=== PATIENT | female | born 1955 | race Caucasian/White ===

== ENCOUNTER → 2023-11-21 15:00 | Outpatient (REF) | payer MEDICARE, SELFPAY | LOC: RAD 15:00 | PROVIDERS: ATTENDING PHYSICIAN Internal Medicine Cardiovascular Disease; FAMILY PHYSICIAN Family Medicine | DX: I71.43 Infrarenal abdominal aortic aneurysm, without rupture (principal) | CPT/HCPCS: 76770 ==

== ENCOUNTER → 2023-12-26 07:17 | Outpatient (REF) | payer MEDICARE, SELFPAY ==
[2023-12-26 08:41] LABS: ALT (SGPT) 24 U/L (0-35); AST (SGOT) 31 U/L (14-36); Albumin 4.2 g/dl (3.5-5.0); Alkaline Phosphatase 87 U/L (38-126); Blood Urea Nitrogen 15 mg/dl (7-17); Carbon Dioxide 29 mmol/L (22-30); Chloride 104 mmol/L (98-107); Direct Bilirubin 0.2 mg/dl (0.0-0.4); Glucose 94 mg/dl (70-99); HDL Cholesterol 59 mg/dl; LDL Cholesterol, Calculated 46 mg/dl; Potassium 4.7 mmol/L (3.5-5.1); Sodium 142 mmol/L (135-145); Total Bilirubin 0.9 mg/dl (0.2-1.3); Total Cholesterol 119 mg/dl (50-199); Total Protein 6.5 g/dl (6.3-8.2); Triglyceride 70 mg/dl (10-149); Very Low Density Lipoprotein 14 mg/dl (0-30); eGFR > 60.00
== END ==
LOC: REG 07:17
PROVIDERS: ATTENDING PHYSICIAN Internal Medicine Cardiovascular Disease; FAMILY PHYSICIAN Family Medicine
DX: E78.00 Pure hypercholesterolemia, unspecified (principal); I10 Essential (primary) hypertension; E78.5 Hyperlipidemia, unspecified
CPT/HCPCS: 36415; 80053; 80061; 82248

== ENCOUNTER → 2024-02-04 14:03 | Outpatient (REF) | payer MEDICARE, SELFPAY | LOC: WDC 14:03 | PROVIDERS: ATTENDING PHYSICIAN Family Medicine | DX: Z12.31 Encounter for screening mammogram for malignant neoplasm of breast (principal) | CPT/HCPCS: 77063; 77067 ==

== ENCOUNTER → 2024-08-07 08:01 | Outpatient (REF) | payer MEDICARE, SELFPAY | LOC: RAD 08:01 | PROVIDERS: ATTENDING PHYSICIAN Surgery Vascular Surgery; FAMILY PHYSICIAN Family Medicine | DX: I73.9 Peripheral vascular disease, unspecified (principal) | CPT/HCPCS: 76770; 93922 ==

== ENCOUNTER → 2024-10-02 13:13 | Outpatient (REF) | payer MEDICARE, SELFPAY | LOC: HWRAD 13:13 | PROVIDERS: ATTENDING PHYSICIAN Family Medicine; FAMILY PHYSICIAN Family Medicine | DX: F17.210 Nicotine dependence, cigarettes, uncomplicated (principal) | CPT/HCPCS: 71271 ==

== ENCOUNTER → 2024-10-12 10:08 | Outpatient (REF) | payer MEDICARE, SELFPAY | LOC: RAD 10:08 | PROVIDERS: ATTENDING PHYSICIAN Family Medicine; FAMILY PHYSICIAN Family Medicine | DX: R30.0 Dysuria (principal); N39.0 Urinary tract infection, site not specified | CPT/HCPCS: 76770; 76830; 76856 ==

== ENCOUNTER → 2024-10-15 14:15 | Outpatient (REF) | payer MEDICARE, SELFPAY | LOC: HWRAD 14:15 | PROVIDERS: ATTENDING PHYSICIAN Internal Medicine; FAMILY PHYSICIAN Family Medicine | DX: R91.1 Solitary pulmonary nodule (principal) | CPT/HCPCS: 71250 ==

== ENCOUNTER → 2024-10-30 11:26 | Outpatient (REF) | payer MEDICARE, SELFPAY ==
[2024-10-30 12:15] LABS: INR 0.98; PT 13.3 Sec (11.4-14.6)
[2024-10-30 12:33] LABS: ALT (SGPT) 22 U/L (0-35); AST (SGOT) 26 U/L (14-36); Albumin 4.6 g/dl (3.5-5.0); Alkaline Phosphatase 91 U/L (38-126); Direct Bilirubin 0.3 mg/dl (0.0-0.4); Total Bilirubin 0.9 mg/dl (0.2-1.3)
== END ==
LOC: REG 11:26
PROVIDERS: ATTENDING PHYSICIAN Internal Medicine; FAMILY PHYSICIAN Family Medicine
DX: R79.1 Abnormal coagulation profile (principal); R94.5 Abnormal results of liver function studies
CPT/HCPCS: 36415; 80076; 85610

== ENCOUNTER 2024-11-02 06:38 | Day surgery (SDC) | payer MEDICARE, SELFPAY ==
[2024-10-27 11:24] LABS: Hematocrit 42.5 % (37.0-47.0); Hemoglobin 14.3 g/dL (12.0-16.0); Mean Corp Hgb Conc. 33.6 g/dL (33.0-37.0); Mean Corpuscular Hgb 32.9 pg (27.0-31.0); Mean Corpuscular Volume 97.9 fL (81.0-99.0); Mean Platelet Volume 11.1 fL (7.4-10.4); Platelet Count 287 10^3/uL (130-400); Red Blood Cell Count 4.34 10^6/uL (4.20-5.40); Red Cell Dist. Width 13.3 % (11.5-14.5); White Blood Cell Count 7.7 10^3/uL (4.8-10.8)
[2024-10-27 11:36] LABS: INR 3.31; PT 33.4 Sec (11.4-14.6)
[2024-10-27 12:06] LABS: Blood Urea Nitrogen 14 mg/dl (7-17); Calcium 9.9 mg/dl (8.4-10.2); Carbon Dioxide 29 mmol/L (22-30); Chloride 108 mmol/L (98-107); Glucose 72 mg/dl (70-99); Potassium 4.8 mmol/L (3.5-5.1); Sodium 144 mmol/L (135-145); eGFR > 60.00
[2024-10-27 13:40] VITALS: BMI 22.1
--- NOTE | 2024-10-27 16:02 | PTCARENOTE ---
Patients 10/27 INR- 3.31- Dinora @ Dr. Biswas office notified
[2024-11-02] VITALS (9 sets, daily range): BP systolic 107–135; BP diastolic 6–68; BMI 22.9
[2024-11-02] MEDS: NSS 500 IV (11:10)
[2024-11-02] MEDS: VENTOLIN NEBULES 2.5 MG INH (11:14)
== END 2024-11-02 15:35 | disposition home or self-care (01) ==
LOC: SDS 06:38
PROVIDERS: ATTENDING PHYSICIAN Internal Medicine; FAMILY PHYSICIAN Family Medicine; OTHER PHYSICIAN Internal Medicine Cardiovascular Disease
DX: R91.1 Solitary pulmonary nodule (principal); C34.31 Malignant neoplasm of lower lobe, right bronchus or lung; J98.4 Other disorders of lung
CPT/HCPCS: 31622; 31627; 31654; 36415; 71045; 76000; 80048; 85027; 85610; 85730; 88112; 88173; 88305; 88333; 88341; 88342; 94640; C1887

== ENCOUNTER 2024-12-23 07:22 | Inpatient (IN) | payer MEDICARE, SELFPAY ==
[2024-12-10 12:16] VITALS: BMI 23.1
[2024-12-10 13:11] LABS: Hematocrit 42.8 % (37.0-47.0); Hemoglobin 14.2 g/dL (12.0-16.0); Mean Corp Hgb Conc. 33.2 g/dL (33.0-37.0); Mean Corpuscular Volume 97.7 fL (81.0-99.0); Nucleated Red Blood Cells % 0 %; Platelet Count 336 10^3/uL (130-400); Red Cell Dist. Width 13.3 % (11.5-14.5)
[2024-12-10 13:17] LABS: INR 0.94; PT 13.0 Sec (11.4-14.6)
[2024-12-10 13:20] LABS: Urine Character Clear (Clear)
--- NOTE | 2024-12-10 13:36 | CM ---
Met with and Mrs. Mann in [facility]. She states prior to admission she resides with her spouse in a spilt level home without any steps to enter. She states she has four steps to get to kitchen area and eight steps to get to bedroom/full
bathroom. Her powder room is on the lower level. She states prior to admission she was independent with ambulation and adls. She states she does not have any DME in the home. She states she has a prescription plan. Her spouse states he will be
home to assist in her care if needed. The discharge plan is to return home with her spouse and a home visit by the Transitional Care Nurse when medically stable.
We reviewed pre-op and post-op routines. We reviewed the shower instructions. She has the soap and the written directions. She already has the Thoracic Surgery Educational Booklet. We also reviewed restrictions including sternal precautions and
driving restrictions. We discussed a home visit by the Transitional Care Nurse. She is agreeable to a home visit. The plan is for right Lower lobectomy on Saturday12/23/24.
[2024-12-10 13:42] LABS: ALT (SGPT) 19 U/L (0-35); AST (SGOT) 27 U/L (14-36); Albumin 4.8 g/dl (3.5-5.0); Alkaline Phosphatase 94 U/L (38-126); Blood Urea Nitrogen 12 mg/dl (7-17); Calcium 9.8 mg/dl (8.4-10.2); Carbon Dioxide 25 mmol/L (22-30); Chloride 107 mmol/L (98-107); Estimated Creatinine Clearance 46 ml/min; Glucose 96 mg/dl (70-99); Potassium 4.9 mmol/L (3.5-5.1); Sodium 142 mmol/L (135-145); Total Protein 7.3 g/dl (6.3-8.2); eGFR > 60.00
[2024-12-10 14:28] LABS: Glycohemoglobin (HgbA1c) 5.9 % (4.0-5.6)
[2024-12-23] VITALS (22 sets, daily range): BP systolic 97–139; BP diastolic 47–87; BMI 23.2
--- NOTE | 2024-12-23 07:55 | PTCARENOTE ---
Received pt into 2265 at 0715; pt AAOx3 and resting comfortably in chair; pt confirmed CHG shower x2 at home and NPO since 1800; home medications confirmed by patient; pt clipped and preped for surger with Dr Fernandez; pt education provided; all
questions answered.
--- NOTE | 2024-12-23 09:50 | W.CVOR.SURPR ---
CVOR Surgeon Immed Pre Op
-
I have examined this patient prior to performance of the scheduled procedure.
The patient's condition is unchanged from the time of the dictated/written History and
Physical and the patient is able to undergo the scheduled procedure.
RATS RLL Medial/Posterior Segment resection + LN Dissection
--- NOTE | 2024-12-23 10:41 | PTCARENOTE ---
Pt sent to CVOR via bed.
[2024-12-23 11:20] LABS: Urine Character Clear (Clear)
--- NOTE | 2024-12-23 11:46 | CM ---
Chart reviewed. Patient is in the OR today. Patient is independent of ADLS, lives with her in a split level house, 0 KRISTIE, 0 DME. Plan is for the patient to return home with CT Transitional RN. CM to follow
[2024-12-23 11:50] LABS: B.E. - POC -1.7 mmol/L; Glucose - POC 109 mg/dl (70-99); HCO3 - POC 25 mmol/L (21-28); Hematocrit - POC 33 % PCV (37-47); Hemodilution- POC No; Hemoglobin Calculated - POC 11.3; Ionized Calcium - POC 1.19 mmol/L (1.15-1.33); Lactate - POC < 0.30 mmol/L (0.36-0.75); O2 Saturation %Calculated-POC 100.0 % (94-98); PCO2 - POC 49 mmHg (35-48); PO2 - POC 542 mmHg (83-108); Potassium - POC 4.1 mmol/L (3.5-5.1); Sodium - POC 142 mmol/L (136-145); Specimen Type - POC Arterial; pH - POC 7.31 (7.35-7.45)
--- NOTE | 2024-12-23 14:15 | W.PN.CT.SURG ---
CT Surgery Operative Note
-
THORACIC SURGERY OPERATIVE REPORT
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
Postoperative Diagnosis: Same
Procedure(s) Performed:
1. Robotic assisted thoracic surgery (RATS)
2. Attempted segmentectomy of S10 of the right lower lobe however considering was present, aborted
3. Radical lymphadenectomy performed
4. Intraoperative bronchoscopy performed
Date of Surgery: 12/23/2024
Comorbidities:
1. Adenocarcinoma of the right lower lobe
2. Severe COPD with DLCO of 30%
3. CAD with previous KS and PCI
4. Hyperlipidemia
5. Hypertension
6. Diverticulitis
7. Abdominal aortic aneurysm
8. Cataracts
9. Hiatal hernia
Attending Surgeon: Elvis Fernandez MD, MS
Assistants: Karuna Alvarenga PA-C (present and necessary to first responder, exchanging robotic instruments, retraction, suction, exposure, suture management, and wound closure under my direction)
Anesthesiology: Juma Romo MD and Luci Cheng CRNA
Scrub and Circulating RNs: Fabricio White RN, Precious Pierre RN
Anesthesia: Dual Lumen GETA
EBL: 50 cc
Products: None
Indication(s) for Procedures: This is a 69-year-old female with 1.9 cm right lower lobe nodule is located in the posterior S10 segment. She underwent pulmonary function test with demonstrated poor DLCO which is consistent with her known COPD. She
recently quit smoking a [id number] and transition over to vaping. Given her poor lung function multidisciplinary team consensus between her fire extinguisher technician myself was performed a limited resection in the form of a segmentectomy possible wedge
resection if feasible.
Findings: There were no obvious intrathoracic lesions concerning for metachronous disease however she had dense scarring around her hilum which could be secondary to both the tumor and central emphysema. Working away from the inferior pulm ligament
posteriorly, as I approached the bronchus there was dense scar tissue surrounding the bronchus with no clear planes. The tumor was visible in the posterior and upper segment of the right lower lobe with adherence to the right upper lobe. A portion
of the tissue right upper lobe was divided using a vessel sealer. I then worked our way into the hilum with no clear plane was identified between the pulmonary artery and the parenchyma. The lymph nodes here did appear to be abnormal and enlarged
and thickened. I continue to work in order to elevate the tumor away from the bronchus to the right lower lobe however was unsuccessful and close to causing injury. I performed an intraoperative bronchoscopy to verify that no bronchial injury was
inadvertently cause. I also performed a saline bubble test and found no significant air leak of the main bronchus. At this point IntraOp frozen section was performed of some of the dense scar tissue throughout the bronchus and of a station 7 lymph
node. This came back as negative. Additional lymph nodes were harvested as best I could. However given that the patient had poor DLCO preoperatively, I opted to abort the procedure and not perform a lobectomy.
Specimen(s):
Station 9, x 1 nodes
Station 10, x 1 nodes
Station 11, x 2 nodes
Station 7, x 3 nodes
Rind surrounding the right lower lobe bronchus
Description of Procedure: The patient was taken to the operating room. Induction via general anesthesia with endotracheal intubation was performed and peripheral venous access and arterial monitoring were inserted. Their identity and procedure to be
performed were verified and they were positioned with the right side up on the operating table. The patient was then prepped and draped in a sterile fashion. A preoperative time-out was performed with all members of the team present. A Veress
needle was used to insufflate the chest after isolating the lung. An 8 mm port was placed in the midaxillary line at approximately the eighth intercostal space and confirmed to be intrathoracic without significant pulmonary injury. The chest was
surveyed for any evidence of metastatic disease. Patient tolerate insufflation without complication. 2 additional 12 mm trocars were placed on either side under camera guidance and a third 8 mm trocar was placed along the back. A 12 mm web assistant
port was placed in the 11th intercostal space above the insertion of the diaphragm.
The thoracic cavity was inspected for evidence of metastatic disease. None was observed. We started with mobilization of the inferior pulmonary ligament. We worked our way clockwise dissecting out the hilum and harvest any lymph nodes identified.
I was unable to successfully free up the nodule/tumor from the bronchus. The hilum and fissure was densely scarred with no clear planes. I performed intraoperative bronchoscopy to verify that I did not because of bronchial injury. None was
identified. Multiple lymph nodes were taken. The rind around the bronchus was also taken and sent off for frozen section. A bubble test was performed by inflating the area with saline and giving a Valsalva maneuver by anesthesia. No significant
air leak was identified. CoSeal was used to reinforce the hilum and the dissected parenchyma. After confirming hemostasis, the lung was fully inflated and all ports were removed. Incisions were closed in 3 layers including the fascia, dermal, and
epidermis. Additional local anesthesia was injected into all incision sites. The skin wound was cleansed and sealed with Dermabond glue.
All instrument, sponge, and needle counts were confirmed to be correct x 2 at the end of the operation. The patient was transferred to the cardiac intensive care unit extubated in critical but stable condition.
I, Dr. Elvis Fernandez, was present, scrubbed for, and performed all critical elements of this procedure.
Elvis Fernandez MD, MS
Cardiothoracic Surgeon
[facility]
This operative dictation was created using the [employer] dictation system. Please excuse any grammatical, typographical, or 'sound alike' errors
--- NOTE | 2024-12-23 14:38 | CON.INTV ---
Consultation
Consultation Request
Date/Time Consultation Requested: 12/23
Date/Time Consultation Performed: 12/23
Reason for Consultation: Pulmonary, critical care
Medical History
-
History of Present Illness:
History obtained primarily from the chart and reviewing outpatient records. Patient is a 69-year-old female with history of moderate COPD, significant tobacco history recently quit October 2024, found to have right lower lobe lung nodule. She
underwent bronchoscopy 11/02/2024 found to have malignant adenocarcinoma, lymph nodes were negative, subsequent PET scan without any evidence of metastatic disease. Patient underwent attempted resection today, was found to have dense scar
surrounding the lesion and up into the hilar space, which proved difficult dissection/resection without risk for injury and possibility of margins not cleared. Resection was not pursued and lymph node dissection was completed. We are asked to help
from pulmonary standpoint 12/23/24
Patient evaluated in the PACU.
Presently comfortable in no apparent distress. She is complaining of incisional discomfort, being treated with narcotic therapy. Chest tube in place minimal airleak. Chest exam is clear, no crepitus
.
PMH: Hypertension, hyperlipidemia, coronary disease with history of stent 2009, abdominal aortic aneurysm, hiatal hernia, moderate COPD (FEV1 67%, DLCO 33% (. History of tonsillectomy, right hip replacement 2017
Past Medical History
Past Medical History: None (See above)
Past Surgical History: None (See above)
Social History
Tobacco: Former Smoker (50+ pack-year history of smoking quit October 2024, ongoing vaping)
Allergies / Home Medications
Allergies
Allergy/AdvReac Type Severity Reaction Status Date / Time
aspartame Allergy Unknown Verified 12/08/24 16:01
bupropion (From Wellbutrin) Allergy Tremors, Verified 12/08/24 16:01
shaking
egg Allergy Nausea Verified 12/08/24 16:01
house dust Allergy Congestion Verified 12/08/24 16:01
legumes Allergy CONGESTION Verified 12/08/24 16:01
lisinopril (Lisinopril) Allergy Hives Verified 12/08/24 16:01
milk Allergy congestion Verified 12/08/24 16:01
mold Allergy Congestion Verified 12/08/24 16:01
saccharin Allergy Unknown Verified 12/08/24 16:01
Processed foods Allergy Congestion Uncoded 12/08/24 16:01
Home Medications
�Medication �Instructions �Recorded �Confirmed �Last Taken �Type
acetaminophen 325 mg tablet 650 mg (2 x 325 mg) PO Q4HPRN PRN 02/12/17 12/23/24 Unknown Rx
for mild pain or fever >100.4F
Women's Probiotic 1 gummy PO DAILY 10/29/24 12/23/24 12/13/24 08:00 History
albuterol sulfate 90 mcg/actuation 2 puff inhalation PRN PRN SOB, 10/29/24 12/23/24 12/18/24 08:00 History
aerosol inhaler Wheezes
ascorbic acid (vitamin C) 500 mg 500 mg PO BID 10/29/24 12/23/24 12/13/24 08:00 History
tablet (Vitamin C)
aspirin 81 mg tablet 81 mg PO HS 10/29/24 12/23/24 12/22/24 20:00 History
atorvastatin 80 mg tablet 80 mg PO HS 10/29/24 12/23/24 12/22/24 20:00 History
fexofenadine 180 mg tablet 180 mg PO DAILY 10/29/24 12/23/24 12/22/24 08:00 History
glycopyrrolate 9 mcg-formoterol 2 puff inhalation BID 10/29/24 12/23/24 12/22/24 20:00 History
4.8 mcg HFA aerosol inhaler
(Bevespi Aerosphere)
nicotine 21 mg/24 hr daily 1 patch transdermal DAILY 10/29/24 12/23/24 12/16/24 08:00 History
transdermal patch
Review of Systems
-
Unable to Obtain full review of systems at this time due to: Acuity
All other systems: Negative unless noted
Vitals / Labs / Diagnostic Testing
Vital Signs
Temp Pulse Resp BP Pulse Ox
98.2 F 70 18 119/52 94
12/23/24 07:25 12/23/24 14:15 12/23/24 14:15 12/23/24 14:15 12/23/24 07:25
Lab Data
12/10/24 12:26
12/10/24 12:26
Diagnostic Testing:
Physical Exam
-
HEENT: Normocephalic, Anicteric and Other (Upper extremity A-line, chest tube)
Cardiovascular: S1/S2, Regular Rhythm, Murmur (n), Rub (n) and Peripheral Edema (n)
Respiratory: Wheeze (n), Rales (n), Rhonchi (n), Non-Labored Respirations, Other (Chest tube in place. Mild airleak) and Other (Splinting on exam)
GI: Soft, Non Distended and Non Tender
Neurology: Awake, Alert and No Motor Deficits (Moving extremities)
Skin: Good Color
General: Comfortable
Assessment
-
69-year-old female with moderate COPD, 50+ pack-year history of smoking quit October 2024 found to have stage Ia adenocarcinoma right lower lobe following bronchoscopy 11/02/2024. Underwent attempted resection but unresectable based on involvement of
margins. Lymph node dissection was completed. We are asked to help from pulmonary standpoint 12/23/24
S/p LN dissection, RATS aborted due to significant scar, possible rt hilar involvement
Would require lobectomy
Moderate obstructive lung disease, FEV1 67%, DLCO 33%
Right lower lobe adenocarcinoma
Per navigational bronchoscopy 11/02/2024
No evidence of extrapulmonary disease
Conditions present prior to admission
History of coronary disease, stent 2008
Abdominal aortic aneurysm
Followed by vascular surgery
Hypercholesterolemia/hypertension
20-[id number]-flal history of smoking, quit 2024
Plan/recommendations
At this time, patient appears to be comfortable in the PACU, conversant. Complaining of incisional discomfort, splinting on exam
Chest exam is clear, no crepitus
Chest tube with minimal airleak
Chest x-ray without acute findings, no pneumothorax. Chest tube in appropriate position
Significant emphysema noted biapical predominant per imaging
Moving forward
Continue with management per CT surgery
Chest tube management per CT surgery
Extensive lymph node dissection was performed
Depending on findings, patient would proceed with definitive radiation therapy with stage I lung cancer, given inability to proceed with resection safely
Patient seen by Dr. Middleton from [facility] preoperatively
Await postoperative EKG
History of CAD noted
Pain control
Bowel regimen
Reviewed briefly with PACU nursing
Will follow
[2024-12-23] MEDS: DILAUDID 0.25 MG IV ×4 (14:45→20:08)
[2024-12-23] MEDS: ANCEF 10 IV ×2 (15:30)
[2024-12-23] MEDS: NEURONTIN 100 MG PO ×2 (15:59→22:44)
[2024-12-23] MEDS: TORADOL 15 MG IV (15:59)
--- NOTE | 2024-12-23 16:08 | PTCARENOTE ---
Received pt from PACU via bed; pt AAOX3 and sleepy; NSR on monitor and VSS; PIV x2 patent; Left A-line not capturing/working; updated CTNP and BP 109/54 pt not on any medication per CTNP ok to remove A-line; Lungs diminished; CT x1 to -20 wall
suction +1 air leak CTNP and MD aware and no crepitus noted; positive bowel sounds; Mai catheter removed in CVOR at 1400, pt DTV by 1999; palpable pulses throughout; no edema noted; all surgical sites C/D?I; see nursing documentation for further
details.
[2024-12-23] MEDS: ROXICODONE 5 MG PO (17:17)
[2024-12-23] MEDS: SENOKOT 8.6 MG PO (19:21)
[2024-12-23] MEDS: ANCEF 5 IV (19:21)
[2024-12-23] MEDS: VITAMIN C 500 MG PO (19:21)
[2024-12-23] MEDS: LOPRESSOR 12.5 MG PO (19:21)
--- NOTE | 2024-12-23 19:25 | PTCARENOTE ---
Patient received from RN @ 1900 w/ call norton in reach. AOx3. Sinus bradycardia on monitor. BP 120/87 HR 64. Heart sounds audible. Radial and pedal pulses present. Bilateral lungs diminished in bases. Right upper lung wheezes noted. POX 95%
3L NC. Right upper lateral chest tube set to -20 suction draining serosanguineous fluid. + 1 air leak noted. No crepitus or tidaling noted. Hypoactive bowel sounds. Voiding dark clear urine. Right breast incision and puncture sites well
approximated and PICK AND SHOVEL MAN. CT dressing C/D/I. Right and left PIV patent and intact. See worklist for more details.
[2024-12-23] MEDS: ZOFRAN 4 MG IV (19:55)
[2024-12-23] MEDS: FLEXERIL 5 MG PO (20:00)
--- NOTE | 2024-12-23 20:10 | PTCARENOTE ---
Patient experiencing intermittent nausea. 1 episode of emesis. Patient states pain 10/13. POX 75% on 3L NC. CT JEM Cantrell notified. Zofran given for nausea and 0.25 Dilaudid given for pain. Respiratory contacted and patient placed on 15L
midflow. POX returned to 100%.
[2024-12-23] MEDS: DUONEB 3 ML INH (20:34)
[2024-12-23] MEDS: LIPITOR 80 MG PO (22:43)
[2024-12-23] MEDS: VISINE EYE DROPS 1 DROP OPHTH (22:44)
[2024-12-23] MEDS: HEPARIN 5000 UNITS SC (22:44)
[2024-12-23] MEDS: TYLENOL 1000 MG PO (22:44)
[2024-12-23] MEDS: ASPIR LOW (ENTERIC COATED) 81 MG PO (22:44)
[2024-12-24] VITALS (17 sets, daily range): BP systolic 84–113; BP diastolic 39–64; BMI 23.9
[2024-12-24] MEDS: TORADOL 15 MG IV ×2 (03:19→20:32)
[2024-12-24] MEDS: ANCEF 5 IV ×2 (03:27→11:49)
[2024-12-24 03:44] LABS: Hematocrit 38.3 % (37.0-47.0); Hemoglobin 12.6 g/dL (12.0-16.0); Mean Corp Hgb Conc. 32.9 g/dL (33.0-37.0); Mean Corpuscular Volume 97.7 fL (81.0-99.0); Platelet Count 285 10^3/uL (130-400); Red Cell Dist. Width 13.2 % (11.5-14.5)
[2024-12-24 04:06] LABS: Blood Urea Nitrogen 21 mg/dl (7-17); Calcium 9.2 mg/dl (8.4-10.2); Carbon Dioxide 27 mmol/L (22-30); Chloride 103 mmol/L (98-107); Estimated Creatinine Clearance 46 ml/min; Glucose 145 mg/dl (70-99); Magnesium 1.9 mg/dl (1.6-2.3); Potassium 5.1 mmol/L (3.5-5.1); Sodium 136 mmol/L (135-145); eGFR > 60.00
[2024-12-24] MEDS: HEPARIN 5000 UNITS SC ×3 (06:21→21:28)
[2024-12-24] MEDS: TYLENOL 1000 MG PO ×3 (06:21→21:27)
--- NOTE | 2024-12-24 07:18 | W.PN.INTV ---
Today's Communication / Plan
Recommendations
Pain control
Chest tube management per CT surgery
Await pathology
Follow-up with pulmonary in the next 2 months. Information left in chart
We will sign off. Please call with questions
Assessment
-
69-year-old female with moderate COPD, 50+ pack-year history of smoking quit October 2024 found to have stage Ia adenocarcinoma right lower lobe following bronchoscopy 11/02/2024. Underwent attempted resection but unresectable based on involvement of
margins. Lymph node dissection was completed. We are asked to help from pulmonary standpoint 12/23/24
S/p LN dissection, RATS aborted due to significant scar, possible rt hilar involvement
Would require lobectomy
Moderate obstructive lung disease, FEV1 67%, DLCO 33%
Right lower lobe adenocarcinoma
Per navigational bronchoscopy 11/02/2024
No evidence of extrapulmonary disease
Conditions present prior to admission
History of coronary disease, stent 2008
Abdominal aortic aneurysm
Followed by vascular surgery
Hypercholesterolemia/hypertension
[id number]-pxlj history of smoking, quit 2024
Plan/recommendations
At this time, patient appears to be comfortable sitting in chair
Chest exam is clear, no crepitus
Chest tube with minimal airleak
Chest x-ray without acute findings, no pneumothorax. Chest tube in appropriate position
Significant emphysema noted biapical predominant per imaging
Moving forward
Continue with management per CT surgery
Chest tube management per CT surgery
Extensive lymph node dissection was performed
Depending on findings, patient would proceed with definitive radiation therapy with stage I lung cancer, given inability to proceed with resection safely
Patient seen by Dr. Middleton from [place] preoperatively
this was reviewed with patient at length
EKG unremarkable
History of CAD noted
Pain control
Bowel regimen
DVT prophylaxis: Subcutaneous heparin every 8 hours
Follow-up with Dr. Bianka Fernandez as previously scheduled
Reviewed with critical care nursing
Reviewed with at bedside
We will sign off. Please call with questions
Subjective Dataa
Subjective Data
Date of Service:
Date of Service: December 24, 2024
Subjective:
Patient sitting in chair,. Complaining of mild incisional discomfort otherwise comfortable. at bedside. Denies nausea, abdominal pain. Chest tube with minimal air leak
Objective Data
Data Reviewed
Vital Signs / I&O / Oxygen:
Vital Signs
Temp Pulse Resp BP Pulse Ox
97.8 F 54 18 95/51 97
12/24/24 03:37 12/24/24 07:01 12/24/24 03:37 12/24/24 07:01 12/24/24 06:20
Intake and Output
12/23/24 12/24/24 12/25/24
06:59 06:59 06:59
Intake Total 415 / 415
Output Total 185 / 185
Balance 230 / 230
SaO2 97
Nasal Cannula flow liters per 4
minute
Physical Exam
General: Comfortable
HEENT: Normocephalic and Anicteric
Cardiovascular: S1-S2, Regular Rhythm, Murmur (n) and Rub (n)
Respiratory: Wheeze (n), Crackles (n), Rhonchi (n), Non-Labored Respirations, Chest Tube (Mild air leak) and Other (Decreased breath sounds)
GI: Soft, Non Distended and Non Tender
Neurology: Awake, Alert and No Motor Deficits
Skin: Cyanosis (n) and Rash (n)
Labs/Micro/Reports
Lab Data
12/24/24 03:14
12/24/24 03:14
[2024-12-24] MEDS: STRIVERDI RESPIMAT 2 PUFF INH (07:44)
[2024-12-24] MEDS: SPIRIVA RESPIMAT 2.5 MCG 2 PUFF INH (07:44)
--- NOTE | 2024-12-24 08:00 | PTCARENOTE ---
Received pt from figure clerk RN; PIV x2 and patent; Sinus Bradycardia on monitor and VSS; Lungs diminished; CT x1 to -10 wall suction, Dr Fernandez at bedside and adjusted settings; +1 intermittent air leak present and no crepitus noted; positive bowel
sounds; pt voiding faye urine; palpable pulses throughout; no edema noted; all surgical sites C/D/I; pain management see MAR for details; see nursing documentation for further details.
[2024-12-24] MEDS: SENOKOT 8.6 MG PO ×2 (08:25→19:33)
[2024-12-24] MEDS: VITAMIN C 500 MG PO ×2 (08:25→19:33)
[2024-12-24] MEDS: NEURONTIN 100 MG PO ×3 (08:25→21:27)
[2024-12-24] MEDS: LIDOCAINE 4% PATCH 1 PATCH TOPICAL (08:25)
[2024-12-24] MEDS: ROXICODONE 5 MG PO ×2 (08:26→15:45)
[2024-12-24] MEDS: VISINE EYE DROPS 1 DROP OPHTH ×3 (08:27→17:12)
[2024-12-24] MEDS: MIRALAX PO (08:28)
--- NOTE | 2024-12-24 08:32 | W.PN.CT ---
Today's Communication / Plan
-
-pod #1
-brief oxygen desaturation down to 75-80% last night d/t splinting from pain and wheezing - improved to 100% with NRB, Neb and Dilaudid. Pt is on mid-flow NC 4L with pOx 95%
-no further issues overnight
-R CT on -20 sxn with continuous air leak, put out in 12/24 hrs
-follow CXR
-maintain on sxn
-encourage IS, OOB
Assessment / Plan
-
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
Intraoperative bronchoscopy performed on 12/23/[address] Fernandez, pod #1
- Adenocarcinoma of the right lower lobe
- Severe COPD with DLCO of 30%
- CAD with previous AK and PCI
- Hyperlipidemia
- Hypertension
- Diverticulitis
- Abdominal aortic aneurysm
- Cataracts
- Hiatal hernia
- Acute on chronic postop pulmonary insufficiency
Discussed patient care with: Nursing and Care Team
Subjective
-
Date of Service: December 24, 2024
Objective Data
-
Lab Results
12/24/24 03:14
12/24/24 03:14
PT 13.0 Sec (11.4-14.6) 12/10/24 12:26
INR 0.94 12/10/24 12:26
Vital Signs
Vital Signs
Temp Pulse Resp BP Pulse Ox
98 F 81 18 95/51 95
12/24/24 07:53 12/24/24 07:50 12/24/24 07:53 12/24/24 07:01 12/24/24 07:53
CT Intake/Output/Weight
12/23/24 12/24/24 12/24/24
18:59 06:59 18:59
Intake Total 415 / 415
Output Total / 185 170 / 185
Balance 400 / 230 -170 / 230 -25 / -25
SaO2: 95
Physical Exam
-
General: Awake and AOx3
Cardiovascular: No Murmurs and No Rub
Respiratory: Wheeze (b/l) and Decreased Breath Sounds (b/l)
Incision: Clean, Dry and Dressing Intact
Extremities: No Edema
Abdomen: soft, nontender, nondistended
Data Reviewed
-
Lab Results: Results Reviewed
Medications: Active Meds Reviewed
Chest X-Ray: Report Reviewed and Image Reviewed
ECG: Report Reviewed and Image Reviewed
--- NOTE | 2024-12-24 10:53 | CM ---
Chart reviewed. Patient OOB sitting in the chair, at bedside. Patient is independent of ADLS, lives with her in a split level, 0 KRISTIE, 0 DME. Plan is for the patient to return home with CT Transitional RN. CM to follow
--- NOTE | 2024-12-24 11:59 | PTCARENOTE ---
Assessment unchanged; Sinus Bradycardia on monitor and VSS: family at bedside.
--- NOTE | 2024-12-24 15:16 | PTCARENOTE ---
Sinus Bradycardia on monitor and VSS: assessment unchanged; pt resting comfortably in chair with family at bedside.
[2024-12-24] MEDS: REMOVE LIDOCAINE PATCH 1 PATCH REMOVE (19:42)
--- NOTE | 2024-12-24 19:47 | PTCARENOTE ---
Patient received from RN @ 1900 w/ call norton in reach. AOx3. Sinus bradycardia on monitor. BP 104/48 HR 59. Heart sounds audible. Radial and pedal pulses present. Bilateral lungs diminished in bases. POX 95% 2L NC. Right upper lateral chest
tube set to -10 wall suction draining serosanguineous fluid. + 1 air leak noted. No crepitus or tidaling noted. Hypoactive bowel sounds. Voiding yellow clear urine. Right breast incision and puncture sites well approximated and SPLITTER OPERATOR. CT
dressing C/D/I. Left PIV patent and intact. See worklist for more details.
[2024-12-24] MEDS: ASPIR LOW (ENTERIC COATED) 81 MG PO (21:26)
[2024-12-24] MEDS: LIPITOR 80 MG PO (21:26)
[2024-12-24] MEDS: VISINE EYE DROPS OPHTH (21:27)
[2024-12-24] MEDS: MELATONIN 5 MG PO (21:37)
--- NOTE | 2024-12-24 23:32 | PTCARENOTE ---
Patient reassessed. NSR on monitor. BP 93/42 patient asymptomatic HR 63 POX 94% 2L NC
[2024-12-25] VITALS (10 sets, daily range): BP systolic 97–143; BP diastolic 46–130; BMI 24.4
[2024-12-25] MEDS: ROXICODONE 5 MG PO ×2 (02:59→20:00)
--- NOTE | 2024-12-25 03:32 | PTCARENOTE ---
Patient reassessed. Sinus bradycardia on monitor. Patient ambulates to void. See MAR for pain management. Crepitus noted on right later chest under axilla, CT JEM Cantrell notified.
--- NOTE | 2024-12-25 03:37 | W.PN.CT ---
Today's Communication / Plan
-
-pod #2
-no issues overnight
-R CT on -10 sxn with +1 air leak, put out 50/95 in 12/24 hrs
-follow CXR
-maintain on sxn
-encourage IS, OOB
Assessment / Plan
-
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
Intraoperative bronchoscopy performed on 12/23/[address] Fernandez, pod #2
- Adenocarcinoma of the right lower lobe
- Severe COPD with DLCO of 30%
- CAD with previous [place] and PCI
- Hyperlipidemia
- Hypertension
- Diverticulitis
- Abdominal aortic aneurysm
- Cataracts
- Hiatal hernia
- Acute on chronic postop pulmonary insufficiency
Discussed patient care with: Nursing and Care Team
Subjective
-
Date of Service: December 25, 2024
Objective Data
-
Lab Results
12/24/24 03:14
12/24/24 03:14
PT 13.0 Sec (11.4-14.6) 12/10/24 12:26
INR 0.94 12/10/24 12:26
Vital Signs
Vital Signs
Temp Pulse Resp BP Pulse Ox
97.4 F 54 19 101/46 96
12/25/24 03:08 12/25/24 03:05 12/25/24 03:08 12/25/24 02:53 12/25/24 03:08
CT Intake/Output/Weight
12/24/24 12/24/24 12/25/24
06:59 18:59 06:59
Output Total 170 / 185 445 / 1195 750 / 1195
Balance -170 / 230 -445 / -1195 -750 / -1195
SaO2: 96
Physical Exam
-
General: Awake and AOx3
Cardiovascular: Regular rate & rhythm, No Murmurs and No Rub
Respiratory: Rhonchi (on R) and Decreased Breath Sounds (b/l)
Sternum: Stable
Incision: Clean, Dry and Dressing Intact
Extremities: No Edema
Data Reviewed
-
Lab Results: Results Reviewed
Medications: Active Meds Reviewed
Chest X-Ray: Report Reviewed and Image Reviewed
ECG: Report Reviewed and Image Reviewed
[2024-12-25] MEDS: TORADOL 15 MG IV ×2 (04:55→22:10)
[2024-12-25] MEDS: DILAUDID 0.25 MG IV (05:41)
[2024-12-25] MEDS: FLEXERIL 5 MG PO (05:41)
[2024-12-25] MEDS: HEPARIN 5000 UNITS SC ×3 (05:42→22:09)
[2024-12-25] MEDS: TYLENOL 1000 MG PO ×3 (05:42→22:10)
[2024-12-25] MEDS: SPIRIVA RESPIMAT 2.5 MCG 2 PUFF INH (08:29)
[2024-12-25] MEDS: STRIVERDI RESPIMAT 2 PUFF INH (08:29)
--- NOTE | 2024-12-25 08:30 | PTCARENOTE ---
received PT AAOx3 w/ complaints of pain at chest tube; NS on monitor VSS; 2L nc decreased LS on R side, R CT w/ +1 air leak; GI constipated ; WNL skin all incisions CDI; PIV WNL; see worklist for detailed assessment
[2024-12-25] MEDS: LIDOCAINE 4% PATCH 1 PATCH TOPICAL (08:57)
[2024-12-25] MEDS: SENOKOT 8.6 MG PO ×2 (08:58→20:00)
[2024-12-25] MEDS: MIRALAX 17 GRAMS PO (08:58)
[2024-12-25] MEDS: NEURONTIN 100 MG PO ×3 (08:58→22:09)
[2024-12-25] MEDS: VITAMIN C 500 MG PO ×2 (08:58→20:00)
[2024-12-25] MEDS: VISINE EYE DROPS 1 DROP OPHTH (08:59)
--- NOTE | 2024-12-25 11:20 | CM ---
Chart reviewed. Patient OOB sitting in the chair with CT -10 cm suction, at bedside. Patient is independent of ADLS, lives with her in a split level house, 0 KRISTIE, 0 DME. Plan is for the patient to return home with CT Transitional
RN. CM to follow
--- NOTE | 2024-12-25 11:30 | PTCARENOTE ---
Assumed care of the patient at 1100. Patient OOB to chair, AOx3, drowsy. SR-SB on CM, pressures stable; pulses palpable, no edema appreciated, heart tones audible. R lateral CT in place to -10 cm water seal, +1 air leak present with tidaling, no
crepitus noted at this time, pleural rub auscultated and R lung coarse throughout, L lung dim throughout, intermittent nonproductive cough noted. Normoactive BS, patient reports passing flatus but no BM yet; voiding spontaneously without difficulty
into the toilet clear, yellow urine. All surgical sites stables and intact, CT dressing CDI. PIVx1 INT. See nursing worklist for additional intervention details.
[2024-12-25] MEDS: VISINE EYE DROPS OPHTH ×2 (12:25→18:05)
--- NOTE | 2024-12-25 16:00 | PTCARENOTE ---
No major changes, patient remain OOB to the chair, napping intermittently, at bedside. VSS. Up to the toilet to void without difficulty.
[2024-12-25] MEDS: REMOVE LIDOCAINE PATCH 1 PATCH REMOVE (20:00)
--- NOTE | 2024-12-25 20:30 | PTCARENOTE ---
Addendum entered by Elizabeth Randle RN 12/26/24 01:07:
Right Upper Lateral Chest tube - 10 cm water suction.
Original Note:
Patient received OOB in chair watching television. Patient A+A+Ox3. No neurological deficits noted. No c/o headache, dizziness or lightheadedness. Roxicodone 5 mg PO for pain management. Patient ambulated to bathroom with minimal assistance to
void, wash face, brush teeth. Patient to bed. Mild BENAVIDEZ. O2 at 2L via NC. SpO2 92%. Oxygen increased to 3L for HS. Right Pleural chest tube intact and patent - +1 Air Leak - 25 ml red drainage - 10 mmHg suction - Dressing intact. Sinus Rhythm.
Heart rate 60's. Blood pressure 107/54 (69). Patient with no c/o chest pain, pressure or discomfort. Abdomen soft, nontender, nondistended. Normoactive bowel sounds. No BM. No c/o nausea. No vomiting. Right lateral chest/back
incisions/puncture site intact - Surgical adhesive - Open to air. Positive, palpable pulses. Assessment as documented.
[2024-12-25] MEDS: LIPITOR 80 MG PO (22:09)
[2024-12-25] MEDS: ASPIR LOW (ENTERIC COATED) 81 MG PO (22:09)
[2024-12-25] MEDS: MELATONIN 5 MG PO (22:10)
--- NOTE | 2024-12-25 23:30 | PTCARENOTE ---
Patient assisted to bathroom without difficulty. Patient voided. Back to bed. O2 at 3L via NC. SpO2 94%. Toradol 15 mg IV for pain management. Patient now sleeping. Assessment/Interventions as documented.
[2024-12-26] VITALS (8 sets, daily range): BP systolic 98–127; BP diastolic 48–88; BMI 24.7
[2024-12-26] MEDS: ROXICODONE 5 MG PO ×3 (03:04→22:31)
--- NOTE | 2024-12-26 04:30 | PTCARENOTE ---
Patient A+A+Ox3. No neurological deficits noted. Ambulates to bathroom with minimal assistance. Right sided chest tube - 10cm H2O - +1 Air Leak. Patient to bathroom - +Void, +Large BM. Back to bed. AM labs to be drawn. Portable CXR to be
completed. Assessment/Interventions as documented.
[2024-12-26] MEDS: TYLENOL 1000 MG PO ×3 (05:24→22:31)
[2024-12-26] MEDS: HEPARIN 5000 UNITS SC ×3 (05:25→22:30)
[2024-12-26] MEDS: MYLICON 80 MG PO (05:25)
[2024-12-26 06:23] LABS: Blood Urea Nitrogen 30 mg/dl (7-17); Calcium 9.4 mg/dl (8.4-10.2); Carbon Dioxide 29 mmol/L (22-30); Chloride 105 mmol/L (98-107); Estimated Creatinine Clearance 41 ml/min; Glucose 124 mg/dl (70-99); Potassium 4.5 mmol/L (3.5-5.1); Sodium 139 mmol/L (135-145); eGFR > 60.00
--- NOTE | 2024-12-26 06:55 | W.PN.CT ---
Today's Communication / Plan
-
-pod #3
-no issues overnight
-increased sq air on CXR 12/25- CT suction was temporarily increased to -20. Repeat CXR was without change and suction was decreased back to -10
-R CT on -10 sxn with +1 air leak, put out 95/185 in 12/24 hrs
-follow CXR
-maintain on sxn
-encourage IS, OOB
Assessment / Plan
-
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
Intraoperative bronchoscopy performed on 12/23/[address] Fernandez, pod #3
- Adenocarcinoma of the right lower lobe
- Severe COPD with DLCO of 30%
- CAD with previous [place] and PCI
- Hyperlipidemia
- Hypertension
- Diverticulitis
- Abdominal aortic aneurysm
- Cataracts
- Hiatal hernia
- Acute on chronic postop pulmonary insufficiency
Discussed patient care with: Nursing and Care Team
Subjective
-
Date of Service: December 26, 2024
Objective Data
-
Lab Results
12/24/24 03:14
PT 13.0 Sec (11.4-14.6) 12/10/24 12:26
INR 0.94 12/10/24 12:26
Vital Signs
Vital Signs
Temp Pulse Resp BP Pulse Ox
98.5 F 73 18 116/52 94
12/25/24 22:00 12/26/24 01:00 12/25/24 22:00 12/25/24 22:00 12/25/24 22:00
CT Intake/Output/Weight
12/25/24 12/25/24 12/26/24
06:59 18:59 06:59
Intake Total 240 / 240
Output Total 750 / 1195 490 / 555 65 / 555
Balance -750 / -1195 -490 / -315 175 / -315
SaO2: 94
Physical Exam
-
General: Awake and AOx3
Cardiovascular: Regular rate & rhythm, No Murmurs and No Rub
Respiratory: Rhonchi (on R) and Decreased Breath Sounds (b/l)
Sternum: Stable
Incision: Clean, Dry and Dressing Intact
Extremities: No Edema
Data Reviewed
-
Lab Results: Results Reviewed
Medications: Active Meds Reviewed
Chest X-Ray: Report Reviewed and Image Reviewed
ECG: Report Reviewed and Image Reviewed
--- NOTE | 2024-12-26 07:45 | PTCARENOTE ---
Received pt from histopath tech RN; pt AAOX3 and resting comfortably in chair; Sinus Bradycardia on monitor and VSS; Lungs diminished and coarse on Right side; IS to 1250; CT x1 to -10 wall suction, +1 intermittent air leak noted and no crepitus;
positive bowel sounds; pt voiding yellow urine; no edema noted; all surgical sites C/D/I; see nursing documentation for further details.
[2024-12-26] MEDS: SPIRIVA RESPIMAT 2.5 MCG 2 PUFF INH (07:46)
[2024-12-26] MEDS: STRIVERDI RESPIMAT 2 PUFF INH (07:46)
[2024-12-26] MEDS: MIRALAX PO (08:07)
[2024-12-26] MEDS: SENOKOT PO ×2 (08:07→19:50)
[2024-12-26] MEDS: NEURONTIN 100 MG PO ×3 (08:56→22:31)
[2024-12-26] MEDS: VITAMIN C 500 MG PO ×2 (08:56→20:08)
[2024-12-26] MEDS: LIDOCAINE 4% PATCH TOPICAL (08:57)
--- NOTE | 2024-12-26 11:39 | PTCARENOTE ---
Sinus Bradycardia on monitor and VSS; pt ambulating in room with RN; pt resting comfortably in chair and family at bedside.
--- NOTE | 2024-12-26 16:06 | PTCARENOTE ---
Assessment unchanged; Sinus Arnav on monitor and VSS; pt resting comfortably in chair with family at bedside.
[2024-12-26] MEDS: REMOVE LIDOCAINE PATCH REMOVE (19:50)
--- NOTE | 2024-12-26 20:30 | PTCARENOTE ---
Patient received OOB in chair. Patient A+A+Ox3. No neurological deficits noted. No c/o headache, dizziness or lightheadedness. Patient ambulated to bathroom with minimal assistance. Voided, washed face and brushed teeth. Patient back to chair
- Watching movie. O2 at 3L via NC. SpO2 95%. Left lung king diminished throughout. Right lung king coarse. One episode of small amount of blood tinged secretions after coughing. Right chest tube - Intact and patent - Negative 10cm H2O
suction - 30 ml red to serosanguineous drainage. Sinus Rhythm. Heart rate 60's. Blood pressure 98/88 (92). Patient with no c/o chest pain, pressure or discomfort. Normoactive bowel sounds. Positive, palpable pulses. No edema noted. Right
anterior and right lateral incisions/puncture sites intact - Open to air. Chest tube dressing intact. Assessment as documented.
[2024-12-26] MEDS: ASPIR LOW (ENTERIC COATED) 81 MG PO (22:30)
[2024-12-26] MEDS: LIPITOR 80 MG PO (22:30)
[2024-12-26] MEDS: MELATONIN 5 MG PO (22:31)
[2024-12-26] MEDS: DUONEB 3 ML INH (23:01)
[2024-12-27] VITALS (8 sets, daily range): BP systolic 107–128; BP diastolic 51–79; BMI 24.6
--- NOTE | 2024-12-27 00:30 | PTCARENOTE ---
Patient ambulated to bathroom to void. Patient to bed. c/o SOB. BENAVIDEZ. O2 at 3L via NC. SpO2 95%. Respiratory therapist notified and arrived to administer DuoNeb 3ml INH. Patient now sleeping. No further c/o SOB. At midnight, Right chest tube
to water seal per MD order. bus transportation manager now displaying Sinus Rhythm with occasional to frequent PVC's. Heart rate 70-80's. Patient with no c/o chest pain, pressure, palpitations or discomfort. SUGAR CANE PLANTING EQUIPMENT OPERATOR for CT Surgery, Jason Felipe SUGAR CANE PLANTING EQUIPMENT OPERATOR, made aware
of CT to water seal and PVC's. No further changes from previous assessment.
[2024-12-27] MEDS: TYLENOL 1000 MG PO ×3 (05:20→21:45)
[2024-12-27] MEDS: HEPARIN 5000 UNITS SC ×3 (05:20→21:45)
--- NOTE | 2024-12-27 05:30 | PTCARENOTE ---
Patient tolerating Right chest tube on water seal. Patient ambulated to bathroom with minimal assistance to void. Standing scale weight 60.9 kg. Patient back to bed. Portable CXR completed. Assessment/Interventions as documented.
--- NOTE | 2024-12-27 05:31 | W.PN.CT ---
Today's Communication / Plan
-
-pod #4
-CT to water seal at midnight, no overt PTX on AM CXR
-still has subq air on exam, stable
-output 55/85 cc in 12/24 hrs
-follow CXR
-encourage IS, OOB
Assessment / Plan
-
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
Intraoperative bronchoscopy performed on 12/23/[address] Fernandez, pod #4
- Adenocarcinoma of the right lower lobe
- Severe COPD with DLCO of 30%
- CAD with previous [place] and PCI
- Hyperlipidemia
- Hypertension
- Diverticulitis
- Abdominal aortic aneurysm
- Cataracts
- Hiatal hernia
- Acute on chronic postop pulmonary insufficiency
Subjective
-
Date of Service: December 27, 2024
Objective Data
-
Lab Results
12/24/24 03:14
12/26/24 05:49
PT 13.0 Sec (11.4-14.6) 12/10/24 12:26
INR 0.94 12/10/24 12:26
Vital Signs
Vital Signs
Temp Pulse Resp BP Pulse Ox
98.7 F 57 16 111/51 94
12/26/24 22:25 12/27/24 05:14 12/26/24 23:03 12/27/24 05:14 12/27/24 05:14
CT Intake/Output/Weight
12/26/24 12/26/24 12/27/24
06:59 18:59 06:59
Intake Total 240 / 240 1680 / 1920 240 / 1920
Output Total 95 / 585 30 / 85 55 / 85
Balance 145 / -345 1650 / 1835 185 / 1835
SaO2: 94
Physical Exam
-
General: Awake, Oriented and AOx3
Cardiovascular: Regular rate & rhythm, No Murmurs and No Rub
Respiratory: Clear and Equal
Incision: Clean, Dry and Other (crepitus surrounding site)
Extremities: No Edema
Data Reviewed
-
Lab Results: Results Reviewed
Medications: Active Meds Reviewed
Chest X-Ray: Report Reviewed
ECG: Report Reviewed
[2024-12-27] MEDS: STRIVERDI RESPIMAT 2 PUFF INH (07:44)
[2024-12-27] MEDS: SPIRIVA RESPIMAT 2.5 MCG 2 PUFF INH (07:44)
--- NOTE | 2024-12-27 08:00 | PTCARENOTE ---
assumed care of patient @ 0700. received pt laying in bed, Aox3. SR/SB on tele, +pulses, - edema. BP stable. R chest tube to water seal with intermittent +1 air leak. L lung diminished, R lung coarse. 93 percent on 2L- Trialed on RA - 84 %.+BS, had
liquid BM yesterday. voiding clear yellow urine in bathroom. Surgical incisions CDI, NHUNG. L AC PIV intact. pt upset and disappointed at not going home today. emotional support povided. assisted pt to chair with standby assist, steady on feet. now
resting comfortably in chair with call norton within reach .
--- NOTE | 2024-12-27 08:00 | PTCARENOTE ---
assumed care of patient @ 0700. received pt laying in bed, Aox3. VSS on RA. NSR on tele. weak pulses, +1 generalized edema, +2 to uppers and lowers. toprol on hold this morning. lungs clear, diminished satting low 90s on room air. lungs clear,
diminished throughout. belly round, normal bowel sounds. no BM yet, passing gas. was straight cathed overnight. gave lasix this morning, 1st void 2250, 350 PVR. will follow bladder scans. Sternum covered with dressing, R Groin and RLE inscisions
CDI, RICE FARMER. R IJ cordis and PIV patent. pt assisted to chair, resting comfortably with call norton within reach .
[2024-12-27] MEDS: NEURONTIN 100 MG PO ×3 (08:10→21:45)
[2024-12-27] MEDS: VITAMIN C 500 MG PO ×2 (08:10→19:46)
[2024-12-27] MEDS: LIDOCAINE 4% PATCH 1 PATCH TOPICAL (08:10)
[2024-12-27] MEDS: MIRALAX PO (08:11)
[2024-12-27] MEDS: SENOKOT PO ×2 (08:11→19:35)
[2024-12-27] MEDS: KCL 20 MEQ PO (09:11)
[2024-12-27] MEDS: LASIX 40 MG IV (09:11)
[2024-12-27] MEDS: ROXICODONE 5 MG PO ×3 (10:05→21:53)
--- NOTE | 2024-12-27 12:20 | PTCARENOTE ---
pt trialed on RA again - 86 percent. Satting 92-94 on 1L. No other change in assessment .
--- NOTE | 2024-12-27 16:38 | PTCARENOTE ---
pt walked multiple laps around hallway with 02 tank and monitor. desat to 80s while walking on 1L, placed on 3L for walk. now resting comfortably in chair, call norton within reach .
--- NOTE | 2024-12-27 19:40 | PTCARENOTE ---
Patient received from RN @1900. Patient sitting in chair w/ call norton in reach. AOx3. Sinus bradycardia on monitor. BP 109/66 HR 57. Heart sounds audible. Radial and pedal pulses present. No edema noted. Right lung course and left lung
diminished in base. POX 94% 2L NC. Right lateral chest tube set to water seal. +1 air leak noted w/ significant tidaling. Bowel sounds normoactive. Voiding clear yellow urine. Surgical Incisions C/D/I. Left PIV patent and intact.
[2024-12-27] MEDS: REMOVE LIDOCAINE PATCH 1 PATCH REMOVE (19:46)
[2024-12-27] MEDS: LIPITOR 80 MG PO (21:45)
[2024-12-27] MEDS: ASPIR LOW (ENTERIC COATED) 81 MG PO (21:45)
[2024-12-27] MEDS: MELATONIN 5 MG PO (21:52)
[2024-12-27] MEDS: TORADOL 15 MG IV (22:29)
[2024-12-28] VITALS (11 sets, daily range): BP systolic 97–124; BP diastolic 53–95; BMI 24.3
--- NOTE | 2024-12-28 00:07 | PTCARENOTE ---
Patient reassessed. SR on monitor. BP 107/64 HR 62 POX 94% 2L NC.
[2024-12-28 01:41] LABS: Hematocrit 35.4 % (37.0-47.0); Hemoglobin 11.9 g/dL (12.0-16.0); Mean Corp Hgb Conc. 33.6 g/dL (33.0-37.0); Mean Corpuscular Volume 97.0 fL (81.0-99.0); Platelet Count 271 10^3/uL (130-400); Red Cell Dist. Width 13.6 % (11.5-14.5)
[2024-12-28 02:38] LABS: Blood Urea Nitrogen 22 mg/dl (7-17); Calcium 9.1 mg/dl (8.4-10.2); Carbon Dioxide 30 mmol/L (22-30); Chloride 101 mmol/L (98-107); Estimated Creatinine Clearance 41 ml/min; Glucose 96 mg/dl (70-99); Magnesium 1.8 mg/dl (1.6-2.3); Potassium 4.7 mmol/L (3.5-5.1); Sodium 135 mmol/L (135-145); eGFR > 60.00
[2024-12-28] MEDS: MAGNESIUM SULFATE 102 GRAMS IV (03:07)
--- NOTE | 2024-12-28 03:28 | PTCARENOTE ---
Patient reassessed. Labs obtained. Sinus bradycardia on monitor w/ PVC's. VSS.
--- NOTE | 2024-12-28 04:43 | W.PN.CT ---
Today's Communication / Plan
-
CT to water seal = +1 air leak, following am chest xray, plan for clamping tonight at midnight
Weight increased (2 to 3 kg) = received 40 mg of lasix on 12/27�
Weaned off oxygen��
Current meds = (ASA, Lipitor, Gabapentin, Lopressor)�
Encourage IS, OOB�
Assessment / Plan
-
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
Intraoperative bronchoscopy performed on 12/23/[address] Fernandez, pod #5
- Adenocarcinoma of the right lower lobe
- Severe COPD with DLCO of 30%
- CAD with previous [place] and PCI
- Hyperlipidemia
- Hypertension
- Diverticulitis
- Abdominal aortic aneurysm
- Cataracts
- Hiatal hernia
- Acute on chronic postop pulmonary insufficiency
Subjective
-
Date of Service: December 28, 2024
Objective Data
-
Lab Results
12/28/24 01:32
12/28/24 01:32
PT 13.0 Sec (11.4-14.6) 12/10/24 12:26
INR 0.94 12/10/24 12:26
Vital Signs
Vital Signs
Temp Pulse Resp BP Pulse Ox
97.9 F 57 18 120/54 93
12/28/24 03:27 12/28/24 03:21 12/28/24 03:27 12/28/24 03:21 12/28/24 03:27
CT Intake/Output/Weight
12/27/24 12/27/24 12/28/24
06:59 18:59 06:59
Intake Total 240 / 1920
Output Total 60 / 90 1860 / 2420 560 / 2420
Balance 180 / 1830 -1860 / -2420 -560 / -2420
SaO2: 93
Physical Exam
-
General: Awake, Oriented and AOx3
Cardiovascular: Regular rate & rhythm
Respiratory: Clear
Sternum: Stable
Incision: Clean, Dry and Intact
Extremities: Edema +1
[2024-12-28] MEDS: TYLENOL 1000 MG PO ×3 (06:17→22:10)
[2024-12-28] MEDS: HEPARIN 5000 UNITS SC ×3 (06:18→22:10)
[2024-12-28] MEDS: ROXICODONE 5 MG PO ×2 (06:41→20:56)
[2024-12-28] MEDS: FLEXERIL 5 MG PO ×2 (06:42→15:33)
[2024-12-28] MEDS: VITAMIN C 500 MG PO ×2 (07:57→20:56)
[2024-12-28] MEDS: NEURONTIN 100 MG PO ×3 (07:57→22:10)
[2024-12-28] MEDS: SENOKOT PO ×2 (07:57→20:52)
[2024-12-28] MEDS: LIDOCAINE 4% PATCH 1 PATCH TOPICAL (07:58)
[2024-12-28] MEDS: MIRALAX PO (07:58)
[2024-12-28] MEDS: STRIVERDI RESPIMAT 2 PUFF INH (08:04)
[2024-12-28] MEDS: SPIRIVA RESPIMAT 2.5 MCG 2 PUFF INH (08:04)
--- NOTE | 2024-12-28 08:15 | PTCARENOTE ---
Assumed care of pt from dayshift RN. Walking rounds completed. Pt AAOx3. Sinus reese on the tele monitor. HR 50s. BP stable. Palpable pulses throughout. No edema noted. Pt on 1 L NC. POX 94%. Deep breathing and IS encouraged. Breath sounds coarse on
right side, diminished on left. Right lateral CT to water seal. Intermittent +1 airleak present w/ tidaling. Output minimal and serosanguineous. Abdomen soft/nontender. +BS x4. Tolerating diet. Voiding spontaneously. All surgical sites stable. PIV
x1 intact. See worklist for full nursing assessment and interventions. Pt updated w/ plan for the day. Call norton within reach.
[2024-12-28] MEDS: LASIX 40 MG IV (09:20)
--- NOTE | 2024-12-28 12:14 | PTCARENOTE ---
No acute changes in assessment. Pt is sinus reese to sinus rhythm on the tele monitor. HR 50-60s. BP stable. Pt is 94% on RA. Right lateral CTx1 intact. Remains to water seal w/ intermittent +1 airleak and tidaling present. All surgical sites
stable. Pt voiding w/o issue. Pain under control at this time. Call norton within reach.
--- NOTE | 2024-12-28 15:57 | PTCARENOTE ---
Pt reassessed. VSS. Pt remains on 1 L NC. POX 92-95%. POX 86-90% on RA. Pt walked in [place] x2 w/ minimal assist. Pt remained on O2 throughout walk. Right lateral CT intact, to water seal, and +1 airleak present. See MAR for pain medication
administration. Call norton within reach.
[2024-12-28] MEDS: REMOVE LIDOCAINE PATCH 1 PATCH REMOVE (20:57)
--- NOTE | 2024-12-28 21:00 | PTCARENOTE ---
Patient received OOB in chair watching television. Patient A+A+Ox3. No neurological deficits noted. Right chest tube to water seal. Patient ambulated to bathroom without difficulty. Voided 450 ml yellow urine. Back to chair. Roxicodone 5 mg
PO for pain management. Right lung king coarse. Left lung king diminished. I.S. 1500 ml. O2 1L via NC. SpO2 93%. Chest tube dressing intact. Sinus Rhythm. Heart rate 60-70's. No ectopy noted. Blood pressure 124/58 (75). Patient with
no c/o chest pain, pressure or discomfort. Normoactive bowel sounds. No BM. Positive, palpable pulses. Right anterior and right lateral chest incisions/puncture sites intact - Open to air. Assessment as documented.
[2024-12-28] MEDS: LIPITOR 80 MG PO (22:09)
[2024-12-28] MEDS: ASPIR LOW (ENTERIC COATED) 81 MG PO (22:09)
[2024-12-28] MEDS: DILAUDID 0.25 MG IV (22:10)
--- NOTE | 2024-12-28 23:00 | PTCARENOTE ---
Patient ambulated to bathroom. Voided 200 ml yellow urine. Patient with increased pain over right upper/middle back. c/o SOB. O2 increased to 2L via NC. SpO2 93%. IV Dilaudid 0.25 mg given for pain management. Patient to bed. Patient resting
in bed. No further changes from previous assessment.
[2024-12-29] VITALS (7 sets, daily range): BP systolic 114–128; BP diastolic 59–66; BMI 23.9
--- NOTE | 2024-12-29 00:30 | PTCARENOTE ---
Patient's right chest tube clamped per MD order at midnight. Patient sleeping without difficulty. PA for CT Surgery, Tamia Adkins PA-C, assessed site. Assessment/Interventions as documented.
--- NOTE | 2024-12-29 03:46 | W.PN.CT ---
Today's Communication / Plan
-
pod #6
-R CT was on water seal last night initially with + air leak only with cough.
-CT was clamped @ midnight and pt developed increased subcutaneous emphysema on am CXR. She felt uncomfortable, stating 'chocking sensation' and change in her voice. She has palpable subcut emphysema on the R side of the throat. No stridor. CT was
put on -10 suction @ 5:30 am. Will re-check CXR. Vitals are stable -pOx 96% on 4L, nsr 63, BP 120/61
-wt is up 6 lbs from preop. Diuresed with 40 iv Lasin on 12/28. UO 650/2250- continue
-Encourage IS, OOB�
Assessment / Plan
-
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
Intraoperative bronchoscopy performed on 12/23/[address] Fernandez, pod #6
- Adenocarcinoma of the right lower lobe
- Severe COPD with DLCO of 30%
- CAD with previous [place] and PCI
- Hyperlipidemia
- Hypertension
- Diverticulitis
- Abdominal aortic aneurysm
- Cataracts
- Hiatal hernia
- Acute on chronic postop pulmonary insufficiency
Discussed patient care with: Nursing and Care Team
Subjective
-
Date of Service: December 29, 2024
Objective Data
-
Lab Results
12/28/24 01:32
12/28/24 01:32
PT 13.0 Sec (11.4-14.6) 12/10/24 12:26
INR 0.94 12/10/24 12:26
Vital Signs
Vital Signs
Temp Pulse Resp BP Pulse Ox
98.2 F 76 18 118/58 93
12/28/24 22:10 12/29/24 00:00 12/28/24 22:10 12/28/24 22:10 12/28/24 22:10
CT Intake/Output/Weight
12/28/24 12/28/24 12/29/24
06:59 18:59 06:59
Intake Total 240 / 240
Output Total 575 / 2435 1645 / 2315 670 / 2315
Balance -575 / -2435 -1645 / -2075 -430 / -2074
SaO2: 93
Physical Exam
-
General: Awake and AOx3
Cardiovascular: Regular rate & rhythm, No Murmurs and No Rub
Respiratory: Decreased Breath Sounds (rhonchi on R. Decreased breath sounds, clear on L)
Incision: Clean, Dry and Dressing Intact
Extremities: Other (trace edema)
Data Reviewed
-
Lab Results: Results Reviewed
Medications: Active Meds Reviewed
Chest X-Ray: Report Reviewed and Image Reviewed
[2024-12-29] MEDS: ROXICODONE 5 MG PO ×2 (04:20→19:51)
--- NOTE | 2024-12-29 04:30 | PTCARENOTE ---
Patient ambulated to bathroom to void. Voided 450 ml yellow urine. Back to bed. Standing scale weight 59.3 kg. SpO2 90%. Mild BENAVIDEZ. c/o 8/10 pain located over right upper back and right middle back regions. Roxicodone 5mg PO given. SpO2 at
rest 93%. O2 at 2L via NC. Patient tolerating clamped right chest tube. Portable CXR in AM. Assessment/Interventions as documented.
[2024-12-29] MEDS: TYLENOL 1000 MG PO ×3 (05:10→19:51)
[2024-12-29] MEDS: HEPARIN 5000 UNITS SC ×3 (05:10→19:52)
--- NOTE | 2024-12-29 05:30 | PTCARENOTE ---
Portable CXR completed. Patient's right chest tube unclamped and placed on -10 cm H2O suction. Slight crepitus palpated over patient's right shoulder/neck area. Patient with c/o throat 'fullness' sensation - No difficulty swallowing.
Assessment/Interventions as documented.
[2024-12-29] MEDS: SPIRIVA RESPIMAT 2.5 MCG 2 PUFF INH (07:56)
[2024-12-29] MEDS: STRIVERDI RESPIMAT 2 PUFF INH (07:56)
[2024-12-29] MEDS: NEURONTIN 100 MG PO ×3 (09:07→19:51)
[2024-12-29] MEDS: VITAMIN C 500 MG PO ×2 (09:07→19:51)
[2024-12-29] MEDS: LIDOCAINE 4% PATCH 1 PATCH TOPICAL (09:08)
[2024-12-29] MEDS: SENOKOT PO ×2 (09:17→19:54)
[2024-12-29] MEDS: MIRALAX PO (09:17)
--- NOTE | 2024-12-29 09:24 | PTCARENOTE ---
Patient received from table top tile setter resting in bed, AAO X 3, states pain controlled at this time. NSR via cm, SaO2 @ 95% on 3lnc. R lateral chest tube to -10cm suction, +1 air leak noted, mild crepitus to RU back and slight to R neck. Procedural sites
stable. Patient updated to plan of care for the day, in agreement. See work list for full assessment and interventions performed.
[2024-12-29] MEDS: ANESTHETIC LOZENGE 1 LOZENGE PO (11:06)
--- NOTE | 2024-12-29 11:43 | PTCARENOTE ---
VS obtained, assessment unchanged. Patient resting oob in chair, at bedside.
[2024-12-29] MEDS: ASPIR LOW (ENTERIC COATED) 81 MG PO (19:51)
[2024-12-29] MEDS: REMOVE LIDOCAINE PATCH 1 PATCH REMOVE (19:51)
[2024-12-29] MEDS: LIPITOR 80 MG PO (19:51)
--- NOTE | 2024-12-29 20:00 | PTCARENOTE ---
assumed care of pt from previous RN. SR on tele-monitor. POX 94% on [address] NC. R lateral CT to -20cm wall suction, draining serosanguineous drainage. +1 air leak noted. crepitus noted to R upper back and L & R neck. pt w/ c/o sore throat and 'squeaky
voice.' CT PA aware. abd s/n, +BS. voiding clear, yellow colored urine. all surgical sites stable, CDI. PIV intact. plan of care discussed w/ pt, pt in agreement. see worklist for complete nursing assessment, interventions, VS, and I&Os.
--- NOTE | 2024-12-30 | PTCARENOTE ---
assessment remains unchanged. VSS.
[2024-12-30 00:07] VITALS: BP 131/54
[2024-12-30] MEDS: ROXICODONE 5 MG PO ×4 (02:43→21:06)
[2024-12-30] MEDS: FLEXERIL 5 MG PO ×2 (02:43→11:13)
[2024-12-30 02:44] VITALS: BMI 23.9
[2024-12-30 04:15] VITALS: BP 135/51
--- NOTE | 2024-12-30 04:30 | PTCARENOTE ---
no acute changes. VSS.
[2024-12-30 04:32] LABS: Hematocrit 36.4 % (37.0-47.0); Hemoglobin 12.1 g/dL (12.0-16.0); Mean Corp Hgb Conc. 33.2 g/dL (33.0-37.0); Mean Corpuscular Volume 97.6 fL (81.0-99.0); Platelet Count 283 10^3/uL (130-400); Red Cell Dist. Width 13.5 % (11.5-14.5)
[2024-12-30 05:06] LABS: Blood Urea Nitrogen 20 mg/dl (7-17); Calcium 9.5 mg/dl (8.4-10.2); Carbon Dioxide 28 mmol/L (22-30); Chloride 105 mmol/L (98-107); Estimated Creatinine Clearance 52 ml/min; Glucose 100 mg/dl (70-99); Magnesium 1.9 mg/dl (1.6-2.3); Potassium 5.0 mmol/L (3.5-5.1); Sodium 136 mmol/L (135-145); eGFR > 60.00
--- NOTE | 2024-12-30 05:53 | W.PN.CT ---
Addendum entered and electronically signed by Negro Watts MD 12/30/24 07:38:
I saw and examined the patient.
The PA's note was reviewed and I agree with the note.
Comment:
POD#[address] to -20 suction today
OK to ambulate on water seal
Will plan for water seal at [facility], [place]
Check daily CXRs
Hopefully will progress towards D/C soon (? CT removal vs. Heimlich valve)
Original Note:
Today's Communication / Plan
-
-pod #7
-failed CT clamp trial on 12/29
-R CT on -20 sxn since 12/29 with + air leak with cough only.
-follow CXR- has subcutaneous emphysema at the neck area affecting her voice. No stridor or hypoxia
Assessment / Plan
-
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
Intraoperative bronchoscopy performed on 12/23/[address] Fernandez, pod #7
- Adenocarcinoma of the right lower lobe
- Severe COPD with DLCO of 30%
- CAD with previous [place] and PCI
- Hyperlipidemia
- Hypertension
- Diverticulitis
- Abdominal aortic aneurysm
- Cataracts
- Hiatal hernia
- Acute on chronic postop pulmonary insufficiency
Discussed patient care with: Nursing and Care Team
Subjective
-
Date of Service: December 30, 2024
Objective Data
-
Lab Results
12/28/24 01:32
12/28/24 01:32
PT 13.0 Sec (11.4-14.6) 12/10/24 12:26
INR 0.94 12/10/24 12:26
Vital Signs
Vital Signs
Temp Pulse Resp BP Pulse Ox
97.9 F 77 14 131/54 96
12/30/24 00:00 12/30/24 00:07 12/30/24 00:00 12/30/24 00:07 12/30/24 00:07
CT Intake/Output/Weight
12/29/24 12/29/24 12/30/24
06:59 18:59 06:59
Intake Total 240 / 240 960 / 960
Output Total 1120 / 2765 1400 / 1720 320 / 1720
Balance -880 / -2525 -440 / -760 -320 / -760
SaO2: 96
Physical Exam
-
General: Awake and AOx3
Cardiovascular: Regular rate & rhythm, No Murmurs and No Rub
Respiratory: Decreased Breath Sounds (rhonchi and decreased breath sounds on R, clear on L). Palpable crepitus at the bases of the neck b/l and over the R back
Incision: Clean, Dry and Dressing Intact
Extremities: no edema b/l
Data Reviewed
-
Lab Results: Results Reviewed
Medications: Active Meds Reviewed
Chest X-Ray: Report Reviewed and Image Reviewed
ECG: Report Reviewed and Image Reviewed
[2024-12-30] MEDS: MAGNESIUM OXIDE 400 MG PO (06:19)
[2024-12-30] MEDS: HEPARIN 5000 UNITS SC ×3 (06:20→21:05)
[2024-12-30] MEDS: TYLENOL 1000 MG PO ×3 (06:20→21:05)
[2024-12-30] MEDS: SENOKOT PO ×2 (07:45→21:06)
[2024-12-30 07:46] VITALS: BP 115/63
[2024-12-30] MEDS: NEURONTIN 100 MG PO ×3 (07:54→21:05)
[2024-12-30] MEDS: VITAMIN C 500 MG PO ×2 (07:54→21:06)
[2024-12-30] MEDS: LIDOCAINE 4% PATCH 1 PATCH TOPICAL (07:54)
[2024-12-30] MEDS: MIRALAX PO (07:55)
--- NOTE | 2024-12-30 08:02 | PTCARENOTE ---
Received pt from machinist 2nd shift RN; pt AAOx3 and resting comfortably in bed; NSR on monitor and VSS; Lungs diminished and coarse on right side and diminished on left; CT x1 to -20 wall suction, +1 intermittent air leak noted and crepitus on right upper
shoulder, throughout right back and on front side of chest; positive bowel sounds; pt voiding yellow urine; no edema noted; palpable pulses throughout; surgical sites C/D/I; see nursing documentation for further details.
[2024-12-30] MEDS: SPIRIVA RESPIMAT 2.5 MCG 2 PUFF INH (08:12)
[2024-12-30] MEDS: STRIVERDI RESPIMAT 2 PUFF INH (08:12)
[2024-12-30 11:11] VITALS: BP 121/81
--- NOTE | 2024-12-30 11:16 | PTCARENOTE ---
NSR on monitor and VSS; pt resting comfortably in chair with family at bedside; assessment unchanged.
[2024-12-30 16:11] VITALS: BP 118/49
--- NOTE | 2024-12-30 16:13 | PTCARENOTE ---
Assessment unchanged; NSR on monitor and VSS; pt ambulating in room and in hallway with RN; family at bedside.
--- NOTE | 2024-12-30 20:00 | PTCARENOTE ---
assumed care of pt from previous RN. pt A&Ox4, resting in chair at time of assessment. SR on tele-monitor. POX 90% on 1 L NC. O2 increased to 2 L, POX 94-95%. R lateral CT to -20cm wall suction, draining serosanguineous drainage. intermittent +1 air
leak. crepitus noted to R upper back and lateral neck. abd s/n, +BS. voiding clear, yellow colored urine. all surgical sites stable, CDI. PIV intact. plan of care discussed w/ pt, pt in agreement. see worklist for complete nursing assessment,
interventions, VS, and I&Os.
[2024-12-30 20:04] VITALS: BP 130/59
[2024-12-30] MEDS: LIPITOR 80 MG PO (21:05)
[2024-12-30] MEDS: ASPIR LOW (ENTERIC COATED) 81 MG PO (21:05)
[2024-12-30] MEDS: REMOVE LIDOCAINE PATCH 1 PATCH REMOVE (21:06)
[2024-12-31] VITALS (7 sets, daily range): BP systolic 104–126; BP diastolic 41–105; BMI 23.9
--- NOTE | 2024-12-31 00:16 | PTCARENOTE ---
assessment remains unchanged. VSS. CT placed to water seal. crepitus remains the same as previous assessment.
--- NOTE | 2024-12-31 03:11 | PTCARENOTE ---
no acute changes. VSS. AM labs collected and sent.
[2024-12-31 03:40] LABS: Blood Urea Nitrogen 22 mg/dl (7-17); Calcium 9.3 mg/dl (8.4-10.2); Carbon Dioxide 27 mmol/L (22-30); Chloride 107 mmol/L (98-107); Estimated Creatinine Clearance 52 ml/min; Glucose 121 mg/dl (70-99); Potassium 4.8 mmol/L (3.5-5.1); Sodium 136 mmol/L (135-145); eGFR > 60.00
[2024-12-31] MEDS: TYLENOL 1000 MG PO ×3 (05:09→22:23)
[2024-12-31] MEDS: HEPARIN 5000 UNITS SC ×3 (05:10→22:24)
--- NOTE | 2024-12-31 06:18 | W.PN.CT ---
Addendum entered and electronically signed by Negro Watts MD 12/31/24 06:32:
I saw and examined the patient.
The PA's note was reviewed and I agree with the note.
Comment:
Improved subcutaneous emphysema - placed on H2O seal since [place]
CXR w/ not PTX - minor forced expiratory air leak yesterday
May require home O2 on D/C - assess today
Will likely require heimlich vavle on D/C - will place to heimlich valve this evening - check AM check
Potential D/C tomorrow
Original Note:
Today's Communication / Plan
-
-pod #8
-failed CT clamp trial on 12/29 (no PTX, had increased subq emphysema)
-R CT on -20 sxn since 12/29 with + air leak with talking and cough.
-subcutaneous emphysema at the neck area appears improved, still has intermittent voice changes. No stridor or hypoxia
-CT changed to water seal at midnight
-follow CXR- appears improved. Follow radiology report
Assessment / Plan
-
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
Intraoperative bronchoscopy performed on 12/23/[address] Fernandez, pod #8
- Adenocarcinoma of the right lower lobe
- Severe COPD with DLCO of 30%
- CAD with previous [place] and PCI
- Hyperlipidemia
- Hypertension
- Diverticulitis
- Abdominal aortic aneurysm
- Cataracts
- Hiatal hernia
- Acute on chronic postop pulmonary insufficiency
Discussed patient care with: Nursing and Care Team
Subjective
-
Date of Service: December 30, 2024
Objective Data
-
Lab Results
12/30/24 04:22
12/30/24 04:22
PT 13.0 Sec (11.4-14.6) 12/10/24 12:26
INR 0.94 12/10/24 12:26
Vital Signs
Vital Signs
Temp Pulse Resp BP Pulse Ox
97.9 F 69 20 130/59 90
12/30/24 16:13 12/30/24 20:04 12/30/24 16:13 12/30/24 20:04 12/30/24 20:04
CT Intake/Output/Weight
12/30/24 12/30/24 12/31/24
06:59 18:59 06:59
Output Total 760 / 2160 745 / 745
Balance -760 / -1200 -745 / -745
SaO2: 90
Physical Exam
-
General: Awake and AOx3
Cardiovascular: Regular rate & rhythm, No Murmurs and No Rub
Respiratory: Decreased Breath Sounds (rhonchi and decreased breath sounds on R, clear on L). Palpable crepitus at the bases of the neck b/l and over the R back
Incision: Clean, Dry and Dressing Intact
Extremities: no edema b/l
Data Reviewed
-
Lab Results: Results Reviewed
Medications: Active Meds Reviewed
Chest X-Ray: Report Reviewed and Image Reviewed
ECG: Report Reviewed and Image Reviewed
[2024-12-31] MEDS: NEURONTIN 100 MG PO ×3 (07:46→22:23)
[2024-12-31] MEDS: VITAMIN C 500 MG PO ×2 (07:46→21:08)
[2024-12-31] MEDS: SENOKOT 8.6 MG PO ×2 (07:46→21:08)
[2024-12-31] MEDS: MIRALAX PO (07:46)
[2024-12-31] MEDS: LIDOCAINE 4% PATCH 1 PATCH TOPICAL (07:46)
--- NOTE | 2024-12-31 07:50 | PTCARENOTE ---
Received pt form maintenance technician 2nd shift RN; pt AAOX3 and resting comfortably in bed; NSR on monitor and VSS; Lungs diminished bilaterally and coarase on right side; CT x1 to water seal, crepitus noted on neck, right shoulder and right back area; IS to 1500;
positive bowel sounds; pt voiding yellow urine; palpable pulses throughout; no edema noted; all surgical sites C/D/I; see nursing documentation for further details.
--- NOTE | 2024-12-31 08:20 | PTCARENOTE ---
[facility]
[2024-12-31] MEDS: STRIVERDI RESPIMAT INH (09:10)
[2024-12-31] MEDS: SPIRIVA RESPIMAT 2.5 MCG INH (09:10)
--- NOTE | 2024-12-31 09:25 | PTCARENOTE ---
Pt ambulating back from bathroom and reported SOB; pulse Ox 86%, tachycardic on monitor; CTNP and CTPA at bedside; oxygen increased to 4L; STAT bedside CRX ordered and obtained; emotional support given.
[2024-12-31] MEDS: XANAX 0.25 MG PO (10:11)
[2024-12-31] MEDS: ROXICODONE 5 MG PO ×2 (11:53→21:08)
--- NOTE | 2024-12-31 12:40 | PTCARENOTE ---
CRX reviewed by Dr Watts and CTPA; pt placed back to pleural vac -20 wall suction; crepitus in neck, right shoulder, and right back area; NSR on monitor and VSS: assessment unchanged; family at bedside and updated.
--- NOTE | 2024-12-31 13:19 | PTCARENOTE ---
Pt with increased swelling and crepitus noted in neck and right back area; CTNP at bedside and pt placed on -30 wall suction.
--- NOTE | 2024-12-31 15:19 | PTCARENOTE ---
NSR on monitor and VSS; assessment unchanged; pt resting comfortably in chair.
--- NOTE | 2024-12-31 21:10 | PTCARENOTE ---
Report received from ARACELY Cox. Walking rounds done. Pt sitting in chair, awake, alert, oriented x 4. Speech clear. Equal strength x 4. C/O 5/10 pain to R lateral/posterior chest incisions. Also c/o tenderness to R side of neck. Oxycodone 5 mg po
given for pain. Pt on 1L/NC. Sats 93%. CDB, IS, flutter valve encouraged. R post-lateral CT to -20 cm suction. Crepitus felt to R side neck, R upper, mid, lower back, and small amount on top of L clavicle. Pt denies dyspnea. Denies difficulty
swallowing. [employer] notified. Pt in SR, with occasional PACs. BP 120's systolic. Mildly elevated diastolic BP. Will retake BP after pain med given. For pulse and wound assessments, check flowsheets. Belly soft, nontender. Normoactive bs x 4. Passing
flatus. Pt voids clear, yellow urine in toilet. Ongoing plan of care.
[2024-12-31] MEDS: REMOVE LIDOCAINE PATCH 1 PATCH REMOVE (22:22)
[2024-12-31] MEDS: ASPIR LOW (ENTERIC COATED) 81 MG PO (22:23)
[2024-12-31] MEDS: LIPITOR 80 MG PO (22:23)
--- NOTE | 2024-12-31 23:05 | PTCARENOTE ---
Evening meds given. Pt helped back to bed. States pain is 3/10, overall better for now. Refused bath for evening. Ongoing plan of care.
[2025-01-01] VITALS (8 sets, daily range): BP systolic 105–140; BP diastolic 44–92; BMI 23.9
--- NOTE | 2025-01-01 00:42 | W.PN.CT ---
Today's Communication / Plan
-
-pod #9
-attempted to switch to Heimlich valve yesterday, worsening subq air and placed back on -20 suction
-subcutaneous emphysema at the neck area appears improved, still has intermittent voice changes. No stridor or hypoxia
-obtain chest CT today
-R Pl CT 10/20 cc out in 12/24 hrs
-follow CXR daily
-may need home O2
Assessment / Plan
-
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
Intraoperative bronchoscopy performed on 12/23/[address] Fernandez, pod #9
- Adenocarcinoma of the right lower lobe
- Severe COPD with DLCO of 30%
- CAD with previous [place] and PCI
- Hyperlipidemia
- Hypertension
- Diverticulitis
- Abdominal aortic aneurysm
- Cataracts
- Hiatal hernia
- Acute on chronic postop pulmonary insufficiency
Subjective
-
Date of Service: January 01, 2025
Objective Data
-
Lab Results
12/30/24 04:22
12/31/24 03:04
PT 13.0 Sec (11.4-14.6) 12/10/24 12:26
INR 0.94 12/10/24 12:26
Vital Signs
Vital Signs
Temp Pulse Resp BP Pulse Ox
98.4 F 66 18 116/60 94
12/31/24 15:10 12/31/24 15:08 12/31/24 15:10 12/31/24 15:08 12/31/24 15:10
CT Intake/Output/Weight
12/31/24 12/31/24 01/01/25
06:59 18:59 06:59
Output Total 685 / 1430 610 / 1060 450 / 1060
Balance -685 / -1430 -610 / -1060 -450 / -1060
SaO2: 94
Physical Exam
-
General: Awake and Oriented
Cardiovascular: Regular rate & rhythm
Respiratory: Clear and Other (R sided subq air to neck)
Incision: Clean, Dry and Intact
Extremities: No Erythema
Data Reviewed
-
Lab Results: Results Reviewed
Medications: Active Meds Reviewed
Chest X-Ray: Report Reviewed and Image Reviewed
ECG: Report Reviewed
--- NOTE | 2025-01-01 04:00 | PTCARENOTE ---
VS done. Pt sleeping. Awakened briefly, going back to sleep. Remains in SR. Sats 95% on 1 L/NC/O2. No c/o pain.
[2025-01-01] MEDS: HEPARIN 5000 UNITS SC ×3 (06:03→22:59)
[2025-01-01] MEDS: TYLENOL 1000 MG PO ×3 (06:05→23:01)
--- NOTE | 2025-01-01 06:15 | PTCARENOTE ---
Pt helped to standing scale, weighed, then helped to recliner chair. Denies dyspnea, no problems swallowing. Roxicodone 5 mg po for 5/10 R sided back and neck pain. Dr. Watts in to see pt this am.
[2025-01-01] MEDS: ROXICODONE 5 MG PO ×2 (06:22→15:04)
[2025-01-01] MEDS: STRIVERDI RESPIMAT 2 PUFF INH (07:21)
[2025-01-01] MEDS: SPIRIVA RESPIMAT 2.5 MCG 2 PUFF INH (07:21)
--- NOTE | 2025-01-01 08:00 | PTCARENOTE ---
Resumed care of patient from prev RN. Walking rounds done. OOB in chair at time of assessment SR HR 60-70s. Pt on 1L/NC. Sats 94%. R post-lateral CT to -20 cm suction. Crepitus on right side from mid back to neck. No SOB reported but occasionally
raspy voice noted. +bs. BRP. surgical sites stable. PIV. will continue to monitor.
[2025-01-01] MEDS: SENOKOT 8.6 MG PO ×2 (09:04→20:42)
[2025-01-01] MEDS: VITAMIN C 500 MG PO ×2 (09:05→20:42)
[2025-01-01] MEDS: NEURONTIN 100 MG PO ×3 (09:05→23:00)
[2025-01-01] MEDS: MIRALAX PO (09:05)
[2025-01-01] MEDS: LIDOCAINE 4% PATCH 1 PATCH TOPICAL (09:17)
--- NOTE | 2025-01-01 11:39 | PTCARENOTE ---
sent for CT of chest on stretcher. will contiue to monitor.
--- NOTE | 2025-01-01 16:00 | PTCARENOTE ---
remains with crepitus. medicated with oxy dose SEE MAR. VSS. will continue to monitor.
[2025-01-01] MEDS: REMOVE LIDOCAINE PATCH 1 PATCH REMOVE (20:41)
--- NOTE | 2025-01-01 21:00 | PTCARENOTE ---
Patient received OOB in chair watching television. Patient A+A+Ox3. No neurological deficits noted. No c/o headache, dizziness or lightheadedness. No c/o SOB. Right pleural chest tube - Intact and patent - Negative 20 cm H2O suction -
Intermittent air leak - Subcutaneous emphysema over right upper/mid lateral back regions and right shoulder and neck regions. Patient with no c/o swallowing difficulties. Voice quality with no changes. No stridor. Minimal straw colored drainage
from chest tube. Chest tube dressing intact. O2 at 1L via NC. SpO2 94%. Right lung king coarse. Sinus Rhythm. Heart rate 60's. Blood pressure 125/55 (74). Patient with no c/o chest pain, pressure or discomfort. Normoactive bowel sounds.
No BM. Voiding without difficulty. Ambulates to bathroom by self. Positive, palpable pulses. Assessment as documented.
[2025-01-01] MEDS: ASPIR LOW (ENTERIC COATED) 81 MG PO (22:59)
[2025-01-01] MEDS: LIPITOR 80 MG PO (23:01)
[2025-01-02] VITALS (9 sets, daily range): BP systolic 108–135; BP diastolic 58–70; BMI 23.8
--- NOTE | 2025-01-02 | PTCARENOTE ---
Patient sleeping without difficulty. No further changes from previous assessment.
--- NOTE | 2025-01-02 01:14 | W.PN.CT ---
Addendum entered and electronically signed by Negro Watts MD 01/02/25 08:34:
I saw and examined the patient.
The PA's note was reviewed and I agree with the note.
Comment:
No changes this weekend
Maintain on -[id number] suction
Daily CXRs
Original Note:
Today's Communication / Plan
-
Plan:
-No major issues overnight
-Did not tolerate transition to Heimlich valve on 12/31, noted increased SQ emphysema
-Currently on -15 cmh2o wall suction, 1+ intermittent air leak, drained 25/80 (serous)
-CxR this AM shows small right apical ptx with slight improvement in SQ emphysema on my assessment, F/U official report
-CT scan obtained yesterday showed small right ptx, small to moderate pneumomediastinum and large right chest wall SQ emphysema with extension to base of neck bilaterally
-Cont. chest tube to suction
-OOB into chair/Ambulate on suction
Assessment / Plan
-
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
Intraoperative bronchoscopy performed on 12/23/[address] Fernandez, pod #10
- Adenocarcinoma of the right lower lobe
- Severe COPD with DLCO of 30%
- CAD with previous [place] and PCI
- Hyperlipidemia
- Hypertension
- Diverticulitis
- Abdominal aortic aneurysm
- Cataracts
- Hiatal hernia
- Acute on chronic postop pulmonary insufficiency
Discussed patient care with: Cardiology, Nursing, Respiratory Therapy, Pharmacy and Care Team
Subjective
-
Date of Service: January 02, 2025
Objective Data
-
PT 13.0 Sec (11.4-14.6) 12/10/24 12:26
INR 0.94 12/10/24 12:26
Vital Signs
Vital Signs
Temp Pulse Resp BP Pulse Ox
98.4 F 65 16 124/70 93
01/01/25 23:00 01/01/25 23:03 01/01/25 23:00 01/01/25 23:03 01/01/25 23:03
CT Intake/Output/Weight
01/01/25 01/01/25 01/02/25
06:59 18:59 06:59
Intake Total 240 / 240
Output Total 1110 / 1750 355 / 1020 665 / 1020
Balance -1110 / -1750 -355 / -780 -425 / -780
SaO2: 93
Physical Exam
-
General: Awake, Oriented and AOx3
Cardiovascular: Regular rate & rhythm and No Murmurs
Respiratory: Decreased Breath Sounds (on right)
Sternum: Stable
Incision: Clean, Dry, Intact and Dressing Intact
Extremities: Other (+crepitus on right chest, shoulder, neck and face)
Data Reviewed
-
Lab Results: Results Reviewed
Medications: Active Meds Reviewed
Chest X-Ray: Report Reviewed and Image Reviewed
CT Scan: Report Reviewed and Image Reviewed
ECG: Report Reviewed and Image Reviewed
[2025-01-02 04:50] LABS: Hematocrit 37.6 % (37.0-47.0); Hemoglobin 12.6 g/dL (12.0-16.0); Mean Corp Hgb Conc. 33.5 g/dL (33.0-37.0); Mean Corpuscular Volume 96.4 fL (81.0-99.0); Platelet Count 354 10^3/uL (130-400); Red Cell Dist. Width 13.6 % (11.5-14.5)
[2025-01-02] MEDS: HEPARIN 5000 UNITS SC ×3 (04:51→22:34)
[2025-01-02] MEDS: TYLENOL 1000 MG PO (04:51)
--- NOTE | 2025-01-02 05:00 | PTCARENOTE ---
Patient OOB to bathroom. Voided 400 ml yellow urine. +BM. AM lab work collected and sent. Standing scale weight 58.9 kg. Patient given CHG bath and linens changed. OOB to chair. Portable CXR completed. Assessment/Interventions as documented.
[2025-01-02 05:13] LABS: Blood Urea Nitrogen 16 mg/dl (7-17); Calcium 9.5 mg/dl (8.4-10.2); Carbon Dioxide 27 mmol/L (22-30); Chloride 106 mmol/L (98-107); Estimated Creatinine Clearance 52 ml/min; Glucose 107 mg/dl (70-99); Magnesium 2.0 mg/dl (1.6-2.3); Potassium 4.6 mmol/L (3.5-5.1); Sodium 138 mmol/L (135-145); eGFR > 60.00
[2025-01-02] MEDS: SPIRIVA RESPIMAT 2.5 MCG 2 PUFF INH (07:59)
[2025-01-02] MEDS: STRIVERDI RESPIMAT 2 PUFF INH (07:59)
[2025-01-02] MEDS: NEURONTIN 100 MG PO ×3 (08:41→22:34)
[2025-01-02] MEDS: VITAMIN C 500 MG PO ×2 (08:41→20:51)
[2025-01-02] MEDS: SENOKOT 8.6 MG PO (08:42)
[2025-01-02] MEDS: LIDOCAINE 4% PATCH 1 PATCH TOPICAL (08:42)
[2025-01-02] MEDS: MIRALAX PO (08:53)
--- NOTE | 2025-01-02 10:13 | PTCARENOTE ---
assumed care of pt from previous shift RN, sinus rhythm on tele, VSS, + peripheral pulses, no edema. Lungs diminished, pox 92% on 1L NC, coughing and deep breathing encouraged. +bs, tolerating PO intake, voids spontaneously. PIV flushes easily.
Surgical sites stable. CT maintained to -20 suctions w +subcu air. Pt denies pain. Plan of care reviewed and questions encouraged.
--- NOTE | 2025-01-02 13:16 | PTCARENOTE ---
CT maintained to -20 suction, pt without complaint.
--- NOTE | 2025-01-02 15:45 | PTCARENOTE ---
VSS, sinus rhythm maintained on tele. CT maintained.
[2025-01-02] MEDS: SENOKOT PO (20:48)
[2025-01-02] MEDS: REMOVE LIDOCAINE PATCH 1 PATCH REMOVE (20:51)
--- NOTE | 2025-01-02 21:00 | PTCARENOTE ---
Patient received OOB in chair watching movie. Patient A+A+Ox3. No neurological deficits noted. Patient ambulating in room and to bathroom by self. No c/o headache, dizziness or lightheadedness. No c/o SOB. O2 at 1L via NC. SpO2 96%. Right
chest tube - Intact and patent - Negative 20 cm H2O suction - Intermittent air leak noted - Minimal straw colored drainage - Dressing intact - Right lung king coarse - Subcutaneous emphysema noted over right lateral back, shoulder and clavicle
regions. Right anterior and lateral chest/back incisions/puncture sites intact - Open to air. Sinus Rhythm. Heart rate 60-70's. Blood pressure 128/59 (79). Patient with no c/o chest pain, pressure or discomfort. Normoactive bowel sounds.
Voiding without difficulty. Positive, palpable pulses. Assessment as documented.
[2025-01-02] MEDS: MELATONIN 5 MG PO (22:34)
[2025-01-02] MEDS: ASPIR LOW (ENTERIC COATED) 81 MG PO (22:34)
[2025-01-02] MEDS: ROXICODONE 5 MG PO (22:34)
[2025-01-02] MEDS: LIPITOR 80 MG PO (22:34)
--- NOTE | 2025-01-03 00:30 | PTCARENOTE ---
Patient sleeping without difficulty. No further changes from previous assessment.
--- NOTE | 2025-01-03 05:05 | W.PN.CT ---
Today's Communication / Plan
-
Plan:
-No major issues overnight
-Did not tolerate transition to Heimlich valve on 12/31, noted increased SQ emphysema
-Currently on -15 cmh2o wall suction, no air leak, drained 0/50 (serous)
-CxR this AM shows questionable tiny right apical ptx with improvement in SQ emphysema on my assessment, F/U official report
-CT scan obtained yesterday showed small right ptx, small to moderate pneumomediastinum and large right chest wall SQ emphysema with extension to base of neck bilaterally
-Cont. chest tube to suction
-OOB into chair/Ambulate on suction
Assessment / Plan
-
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
Intraoperative bronchoscopy performed on 12/23/[address] Fernandez, pod #11
- Adenocarcinoma of the right lower lobe
- Severe COPD with DLCO of 30%
- CAD with previous [place] and PCI
- Hyperlipidemia
- Hypertension
- Diverticulitis
- Abdominal aortic aneurysm
- Cataracts
- Hiatal hernia
- Acute on chronic postop pulmonary insufficiency
Discussed patient care with: Cardiology, Nursing, Respiratory Therapy, Pharmacy and Care Team
Subjective
-
Date of Service: January 03, 2025
Pt c/o mild horseness of voice, likely from SQ emphysema, otherwise feels well
Objective Data
-
Lab Results
01/02/25 04:28
01/02/25 04:28
PT 13.0 Sec (11.4-14.6) 12/10/24 12:26
INR 0.94 12/10/24 12:26
Vital Signs
Vital Signs
Temp Pulse Resp BP Pulse Ox
98.1 F 76 16 110/58 94
01/02/25 22:30 01/03/25 04:00 01/02/25 22:30 01/02/25 22:30 01/02/25 22:30
CT Intake/Output/Weight
01/02/25 01/02/25 01/03/25
06:59 18:59 06:59
Intake Total 480 / 480 240 / 240
Output Total 1065 / 1420 550 / 1250 700 / 1250
Balance -585 / -940 -550 / -1010 -460 / -1010
SaO2: 94 (1L)
Physical Exam
-
General: Awake, Oriented and AOx3
Cardiovascular: Regular rate & rhythm, No Murmurs, No Rub and No Gallop
Respiratory: Decreased Breath Sounds (at bases, otherwise clear)
Sternum: Stable
Incision: Clean, Dry, Intact and Dressing Intact
Extremities: No Edema and Other
+crepitus @ right chest, back, shoulder, neck
Data Reviewed
-
Lab Results: Results Reviewed
Medications: Active Meds Reviewed
Chest X-Ray: Report Reviewed and Image Reviewed
ECG: Report Reviewed and Image Reviewed
[2025-01-03 05:55] VITALS: BP 112/54
[2025-01-03] MEDS: HEPARIN 5000 UNITS SC ×3 (05:58→20:55)
[2025-01-03 06:00] VITALS: BP 112/54; BMI 23.7
--- NOTE | 2025-01-03 06:00 | PTCARENOTE ---
Patient A+A+Ox3. Portable CXR completed. OOB to bathroom by self. Voided 250 ml yellow urine. Standing scale weight 58.8 kg. Right chest tube - 20 ml straw color drainage. Patient OOB in chair watching television. Assessment/Interventions as
documented.
[2025-01-03] MEDS: STRIVERDI RESPIMAT 2 PUFF INH (08:12)
[2025-01-03] MEDS: SPIRIVA RESPIMAT 2.5 MCG 2 PUFF INH (08:12)
[2025-01-03 10:02] VITALS: BP 116/85
[2025-01-03] MEDS: VITAMIN C 500 MG PO ×2 (10:04→20:55)
[2025-01-03] MEDS: LIDOCAINE 4% PATCH 1 PATCH TOPICAL (10:04)
[2025-01-03] MEDS: NEURONTIN 100 MG PO ×3 (10:04→20:55)
[2025-01-03] MEDS: SENOKOT PO ×2 (10:05→20:28)
--- NOTE | 2025-01-03 12:34 | PTCARENOTE ---
VSS, pt denies pain. CT intact. Family at bedside.
[2025-01-03 13:00] VITALS: BP 109/61
[2025-01-03 16:27] VITALS: BP 133/54
[2025-01-03] MEDS: ROXICODONE 5 MG PO ×2 (16:29→20:56)
--- NOTE | 2025-01-03 16:46 | PTCARENOTE ---
VSS, sinus rhythm maintained on tele. CT maintained to -20 suctions. Pt medicated for pain.
[2025-01-03 19:46] VITALS: BP 118/58
--- NOTE | 2025-01-03 20:08 | PTCARENOTE ---
assumed care of pt from previous shift RN, pt AAOx4 sinus rhythm on tele HR 60s, VSS, + peripheral pulses, no edema. Lungs diminished, pox 93% on RA, coughing and deep breathing encouraged. +bs, tolerating PO intake, voids spontaneously. PIV flushes
easily. Surgical sites stable. CT maintained to -20 suctions w +subcu air. Pt denies pain. Plan of care reviewed and questions encouraged. call norton within reach
[2025-01-03] MEDS: REMOVE LIDOCAINE PATCH REMOVE (20:28)
[2025-01-03] MEDS: LIPITOR 80 MG PO (20:55)
[2025-01-03] MEDS: ASPIR LOW (ENTERIC COATED) 81 MG PO (20:55)
[2025-01-04 00:50] VITALS: BP 104/40
--- NOTE | 2025-01-04 00:52 | PTCARENOTE ---
VSS. pt resting comfortably in bed. NSR per tele monitor.
[2025-01-04] MEDS: TYLENOL 650 MG PO (04:36)
[2025-01-04 04:38] VITALS: BP 125/64
--- NOTE | 2025-01-04 04:51 | PTCARENOTE ---
VSS, pt ambulating in room, NSR per tele monitor. HR 60s assessment unchanged
[2025-01-04] MEDS: HEPARIN 5000 UNITS SC ×3 (05:05→21:22)
[2025-01-04 05:06] VITALS: BMI 23.8
--- NOTE | 2025-01-04 05:21 | W.PN.CT ---
Addendum entered and electronically signed by Negro Watts MD 01/04/25 10:09:
I saw and examined the patient.
The PA's note was reviewed and I agree with the note.
Comment:
Patient has been on -15 cm water suction x 72 hours
Subjectively she feels as though her subcutaneous emphysema has improved
Chest x-ray: unchanged
Chest tube with no air leak/forced expiratory airleak
Will attempt to transition to waterseal at midnight tonight, check a.m. chest x-ray
Original Note:
Today's Communication / Plan
-
Plan:
-No major issues overnight
-Did not tolerate transition to Heimlich valve on 12/31, noted increased SQ emphysema
-Currently on -15 cmh2o wall suction, no air leak, drained 30/30 (serous)
-CxR this AM shows questionable tiny right apical ptx (difficult to discern with SQ emphysema) with improvement in SQ emphysema on my assessment, F/U official report
-CT scan obtained on 01/01 showed small right ptx, small to moderate pneumomediastinum and large right chest wall SQ emphysema with extension to base of neck bilaterally
-Will consider chest tube to water seal vs -10 cmh2o suction
-OOB into chair/Ambulate
Assessment / Plan
-
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
Intraoperative bronchoscopy performed on 12/23/[address] Fernandez, pod #12
- Adenocarcinoma of the right lower lobe
- Severe COPD with DLCO of 30%
- CAD with previous [place] and PCI
- Hyperlipidemia
- Hypertension
- Diverticulitis
- Abdominal aortic aneurysm
- Cataracts
- Hiatal hernia
- Acute on chronic postop pulmonary insufficiency
Discussed patient care with: Cardiology, Nursing, Respiratory Therapy, Pharmacy and Care Team
Subjective
-
Date of Service: January 04, 2025
Pt c/o hoarseness from SC emphysema, otherwise feels well
Objective Data
-
Lab Results
01/02/25 04:28
01/02/25 04:28
PT 13.0 Sec (11.4-14.6) 12/10/24 12:26
INR 0.94 12/10/24 12:26
Vital Signs
Vital Signs
Temp Pulse Resp BP Pulse Ox
98.3 F 65 18 125/64 91
01/04/25 04:41 01/04/25 04:38 01/04/25 04:41 01/04/25 04:38 01/04/25 04:41
CT Intake/Output/Weight
01/03/25 01/03/25 01/04/25
06:59 18:59 06:59
Intake Total 480 / 480
Output Total 970 / 1520 500 / 1080 580 / 1080
Balance -490 / -1040 -500 / -1080 -580 / -1080
SaO2: 92 (RA)
Physical Exam
-
General: Awake, Oriented and AOx3
Cardiovascular: Regular rate & rhythm, No Murmurs, No Rub and No Gallop
Respiratory: Decreased Breath Sounds (on right)
Sternum: Stable
Incision: Clean, Dry, Intact and Dressing Intact
Extremities: No Edema
Data Reviewed
-
Lab Results: Results Reviewed
Medications: Active Meds Reviewed
Chest X-Ray: Report Reviewed and Image Reviewed
ECG: Report Reviewed and Image Reviewed
[2025-01-04] MEDS: SPIRIVA RESPIMAT 2.5 MCG 2 PUFF INH (07:19)
[2025-01-04] MEDS: STRIVERDI RESPIMAT 2 PUFF INH (07:19)
[2025-01-04 09:09] VITALS: BP 116/54
[2025-01-04] MEDS: NEURONTIN 100 MG PO ×3 (09:11→21:22)
[2025-01-04] MEDS: VITAMIN C 500 MG PO ×2 (09:11→21:25)
[2025-01-04] MEDS: ROXICODONE 5 MG PO ×2 (09:19→21:22)
[2025-01-04] MEDS: SENOKOT PO ×2 (09:20→21:21)
[2025-01-04] MEDS: LIDOCAINE 4% PATCH TOPICAL (09:20)
--- NOTE | 2025-01-04 09:54 | PTCARENOTE ---
assumed care of pt from previous shift RN, sinus rhythm on tele, VSS, + peripheral pulses, no edema. Lungs diminished, pox 94% on RA, coughing and deep breathing encouraged. +bs, tolerating PO intake, voids spontaneously. PIV flushes easily.
Surgical sites stable. CT maintained to -20 suctions w +subcu air. Pt medicated for pain. Plan of care reviewed and questions encouraged.
[2025-01-04 11:48] VITALS: BP 105/59
[2025-01-04 15:55] VITALS: BP 113/61
--- NOTE | 2025-01-04 16:28 | PTCARENOTE ---
vss, minimal output from CT, pt denies pain.
[2025-01-04 20:38] VITALS: BP 125/77
[2025-01-04] MEDS: ASPIR LOW (ENTERIC COATED) 81 MG PO (21:21)
[2025-01-04] MEDS: REMOVE LIDOCAINE PATCH REMOVE (21:21)
[2025-01-04] MEDS: LIPITOR 80 MG PO (21:22)
[2025-01-05 00:01] VITALS: BP 122/49
--- NOTE | 2025-01-05 00:03 | PTCARENOTE ---
VSS, NSR per tele monitor HR 80s. CT placed to water seal @ 2400
--- NOTE | 2025-01-05 04:24 | W.PN.CT ---
Today's Communication / Plan
-
Plan:
-No major issues overnight
-Did not tolerate transition to Heimlich valve on 12/31, noted increased SQ emphysema
-Chest tube transitioned to water seal @ midnight after being on -15 cmh2o for 3 days. No air leak prior and post water seal, drained 50/50 (serous)
-CxR this AM unchanged on my assessment, questionable tiny right apical ptx and SQ emphysema (difficult to discern with SQ emphysema), F/U official report
-CT scan obtained on 01/01 showed small right ptx, small to moderate pneumomediastinum and large right chest wall SQ emphysema with extension to base of neck bilaterally
-Will consider chest tube to water seal another day vs clamping with another trial of Heimlich valve
-OOB into chair/Ambulate
-Home later today vs tomorrow
Assessment / Plan
-
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
Intraoperative bronchoscopy performed on 12/23/[address] Fernandez, pod #[id number]
- Adenocarcinoma of the right lower lobe
- Severe COPD with DLCO of 30%
- CAD with previous UT and PCI
- Hyperlipidemia
- Hypertension
- Diverticulitis
- Abdominal aortic aneurysm
- Cataracts
- Hiatal hernia
- Acute on chronic postop pulmonary insufficiency
Discussed patient care with: Cardiology, Nursing, Respiratory Therapy, Pharmacy and Care Team
Subjective
-
Date of Service: January 05, 2025
Pt c/o voice being a bit hoarse, likely from SQ emphysema, otherwise feels well
Objective Data
-
Lab Results
01/02/25 04:28
01/02/25 04:28
PT 13.0 Sec (11.4-14.6) 12/10/24 12:26
INR 0.94 12/10/24 12:26
Vital Signs
Vital Signs
Temp Pulse Resp BP Pulse Ox
98.3 F 68 18 122/49 92
01/05/25 00:00 01/05/25 00:01 01/05/25 00:00 01/05/25 00:01 01/05/25 00:00
CT Intake/Output/Weight
01/04/25 01/04/25 01/05/25
06:59 18:59 06:59
Intake Total 100 / 100
Output Total 580 / 1080 750 / 1220 470 / 1220
Balance -580 / -1080 -650 / -1120 -470 / -1120
SaO2: 92 (RA)
Physical Exam
-
General: Awake, Oriented and AOx3
Cardiovascular: Regular rate & rhythm
Respiratory: Decreased Breath Sounds (on right)
Sternum: Stable
Incision: Clean, Dry, Intact and Dressing Intact
Extremities: No Edema
Data Reviewed
-
Lab Results: Results Reviewed
Medications: Active Meds Reviewed
Chest X-Ray: Report Reviewed and Image Reviewed
ECG: Report Reviewed and Image Reviewed
[2025-01-05] MEDS: HEPARIN 5000 UNITS SC (05:19)
[2025-01-05 05:21] VITALS: BP 110/47
[2025-01-05] MEDS: ROXICODONE 5 MG PO ×2 (05:25→13:23)
[2025-01-05 06:00] VITALS: BMI 23.7
[2025-01-05] MEDS: SPIRIVA RESPIMAT 2.5 MCG 2 PUFF INH (07:18)
[2025-01-05] MEDS: STRIVERDI RESPIMAT 2 PUFF INH (07:18)
--- NOTE | 2025-01-05 07:53 | PTCARENOTE ---
Received pt from security shift supervisor RN; pt AAOx3 and resting comfortably in chair; NSR on monitor and VSS; PIV x1 patent; lungs diminished; CT x1 to water seal; no air leak noted; positive bowel sounds; pt voiding yellow urine; palpable pulses throughout;
no edema noted; all surgical sites C/D/I; see nursing documentation for further details.
[2025-01-05 08:16] VITALS: BP 113/80
[2025-01-05] MEDS: VITAMIN C 500 MG PO (08:17)
[2025-01-05] MEDS: NEURONTIN 100 MG PO (08:17)
[2025-01-05] MEDS: SENOKOT 8.6 MG PO (08:17)
[2025-01-05] MEDS: LIDOCAINE 4% PATCH TOPICAL (08:17)
--- NOTE | 2025-01-05 12:18 | W.DCSUMMARY ---
Discharge Summary
Discharge Data
Date of Admission: 12/23/24
Date of Discharge: 01/05/25
-
Pending Results: No
Hospital Course
Primary care physician: Segundo Hardin
Outpatient Oncologist: Kendra Middleton
Inpatient consultants: Pulmonary medicine
Procedures:
1. Radical lymphadenectomy
Primary Diagnosis:
1. Right lower lobe adenocarcinoma
Secondary Diagnoses:
1. Severe COPD with DLCO of 30%
2. CAD with previous NM and LAD stent (2008)
3. Hyperlipidemia
4. Hypertension
5. Diverticulitis
6. Abdominal aortic aneurysm
7. Cataracts
8. Hiatal hernia
- Acute on chronic postop pulmonary insufficiency
- persistent subcutaneous emphysema with chest tube air leak
HPI: 69-year-old female electively admitted on 12/23/2024 planned resection of right lower lobe adenocarcinoma
Hospital course: Patient was taken to the operating room and underwent robotic assisted thoracic surgery (RATS), aborted attempt of segmentectomy of S10 of the right lower lobe, radical lymphadenectomy and intraoperative bronchoscopy performed by
Dr. Elvis eFrnandez. Segmentectomy procedure aborted due to adherence of the mass to hilum. Please see operative note for further details. Lymph node pathology was negative for carcinoma. DVT prophylaxis with SC Heparin was initiated. Patient was
extubated in the operating room. A near continuous air leak was noted in PACU and chest tube suction was at -20 cm. Postoperative day #1, suction was decreased to -10 cm with intermittent air leak persistent. On postoperative day #5, chest tube
was on water seal with small air leak. Postoperative day #6 attempt at clamp was performed but increased subcutaneous emphysema was noted on follow-up chest x-ray. Therefore chest tube was placed back to suction. On postoperative day #12, chest
tube was placed to water seal at midnight. Morning CXR postoperative day #13 remained stable. Chest tube was clamped and repeat chest x-ray at 12 noon reported no pneumothorax and no increase in subcutaneous emphysema. Chest drain was removed and
occlusive dressing applied. Patient remained stable with pulse oximetry 92% on room air. No desaturation with ambulation. Patient will be discharged home with transitional nurse team follow-up. Patient will obtain a follow-up chest x-ray (PA and
lateral) in 1 week.
Home medication changes:
Oxycodone for pain
Discharge Plan
-
Patient Disposition: Home (Routine Discharge)
Discharge Diagnosis/Procedures: lymph node dissection, aborted lobectomy (12/23)
Condition: Fair
Diet: Low Cholesterol and Low Sodium
Activity: No strenuous activity
Driving Restrictions: No driving for 2 weeks
Bathing Restrictions: OK to Shower
Others Tests: CXR (PA & lat) in 1 week
Wound Care: remove dressing in 24 hours, let incision open to air
Referrals:
CT Transitional Care Nurse [Outside]
Referral Note: The Cardiothoracic Transitional Care Nurse will call you to set up a visit in 1-2 days.
Segundo aHrdin MD [Family Provider, Family Practice]
Bianka Thompson DO [Active, Pulmonary Medicine]
Referral Note: 2 mo
Elvis Fernandez MD [Active, Cardiac Surgery] - 01/11/25 2:30 pm
Prescriptions:
New
oxycodone 5 mg Tablet
5 mg PO Q4HPRN PRN (Reason: severe pain) Qty: 10 0RF
Continued
acetaminophen 325 MG tablet
650 mg PO Q4HPRN PRN (Reason: for mild pain or fever >100.4F) 0RF
atorvastatin 80 mg Tablet
80 mg PO HS
fexofenadine 180 mg Tablet
180 mg PO DAILY
ascorbic acid (vitamin C) [Vitamin C] 500 mg Tablet
500 mg PO BID
aspirin 81 mg Tablet
81 mg PO HS
albuterol sulfate 90 mcg/actuation Hfa Aerosol Inhaler
2 puff INHALATION PRN PRN (Reason: SOB, Wheezes)
Bevespi Aerosphere 9-4.8 mcg Hfa Aerosol Inhaler
2 puff INHALATION BID
Women's Probiotic
1 gummy PO DAILY
nicotine 21 mg/24 hr Patch 24 Hour
1 patch TRANSDERMAL DAILY
Discharge Orders:
Discharge Patient (As Directed); Ordered 01/05/25
Ordered By: Leatha Kumar
Care Plan Goals
Care Plan Goals:
Problem: Readiness for enhanced knowledge related to diagnosis and treatment plan
Goal: Understand your diagnosis and treatment plan needs, including medications if applicable.
Instructions: Know your diagnosis, underlying causes and treatment plan options, including medications if applicable. Consult with your health care team to learn about your diagnosis and treatment plan, including medications if applicable.
Discharge Date and Time
Print Language: TUNISIAN
--- NOTE | 2025-01-05 12:20 | PTCARENOTE ---
CRX reviewed by CTOLIVIA and Dr Fernandez; CT removed by CTNP; NSR on monitor and VSS; awaiting discharged paperwork.
[2025-01-05 12:21] VITALS: BP 112/58
[2025-01-05] MEDS: TYLENOL 650 MG PO (13:23)
--- NOTE | 2025-01-05 13:46 | PTCARENOTE ---
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
== END 2025-01-05 14:15 | disposition home or self-care (01) | DRG 166 ==
LOC: CVICU 07:22
PROVIDERS: Nurse Practitioner; Nurse Practitioner Primary Care; Physician Assistant Medical; ADMITTING PHYSICIAN Thoracic Surgery (Cardiothoracic Vascular Surgery); CONSULT PHYSICIAN Internal Medicine Critical Care Medicine; FAMILY PHYSICIAN Family Medicine
PROC: 8E0W4CZ Robotic Assisted Procedure of Trunk Region, Percutaneous Endoscopic Approach (ICD-10-PCS; 2024-12-23)
PROC: 07T74ZZ Resection of Thorax Lymphatic, Percutaneous Endoscopic Approach (ICD-10-PCS; 2024-12-23)
PROC: 0BB Respiratory System, Excision (ICD-10-PCS; 2024-12-23)
DX: C34.31 Malignant neoplasm of lower lobe, right bronchus or lung (principal); J95.1 Acute pulmonary insufficiency following thoracic surgery; J95.812 Postprocedural air leak; T79.7XXA Traumatic subcutaneous emphysema, initial encounter; J43.9 Emphysema, unspecified; I25.10 Atherosclerotic heart disease of native coronary artery without angina pectoris; I25.2 Old myocardial infarction; E78.00 Pure hypercholesterolemia, unspecified; I10 Essential (primary) hypertension; K44.9 Diaphragmatic hernia without obstruction or gangrene; I71.40 Abdominal aortic aneurysm, without rupture, unspecified; H26.9 Unspecified cataract; Z53.09 Procedure and treatment not carried out because of other contraindication; Z79.82 Long term (current) use of aspirin; Z79.899 Other long term (current) drug therapy; Z82.49 Family history of ischemic heart disease and other diseases of the circulatory system; Z87.891 Personal history of nicotine dependence; Z95.5 Presence of coronary angioplasty implant and graft; Y84.8 Other medical procedures as the cause of abnormal reaction of the patient, or of later complication, without mention of misadventure at the time of the procedure
CPT/HCPCS: 32505; 36415; 71045; 71250; 80048; 80053; 81003; 82248; 83036; 83735; 85025; 85027; 85610; 86850; 86900; 86901; 86920; 87070; 88305; 88331; 93005; 93880; 94010; 94060; 94640; 94727; 94729

== ENCOUNTER → 2025-01-08 10:40 | Outpatient (REF) | payer MEDICARE, SELFPAY | LOC: RAD 10:40 | PROVIDERS: ATTENDING PHYSICIAN Thoracic Surgery (Cardiothoracic Vascular Surgery); FAMILY PHYSICIAN Family Medicine | DX: J93.9 Pneumothorax, unspecified (principal) | CPT/HCPCS: 71046 ==

== ENCOUNTER → 2025-03-29 11:10 | Outpatient (REF) | payer MEDICARE, SELFPAY ==
[2025-03-29 12:58] LABS: Blood Urea Nitrogen 17 mg/dl (7-17); Calcium 10.3 mg/dl (8.4-10.2); Carbon Dioxide 30 mmol/L (22-30); Chloride 103 mmol/L (98-107); Glucose 109 mg/dl (70-99); Potassium 4.7 mmol/L (3.5-5.1); Sodium 139 mmol/L (135-145); eGFR > 60.00
== END ==
LOC: REG 11:10
PROVIDERS: ATTENDING PHYSICIAN Surgery Vascular Surgery
DX: I71.43 Infrarenal abdominal aortic aneurysm, without rupture (principal)
CPT/HCPCS: 36415; 80048

== ENCOUNTER → 2025-04-05 14:21 | Outpatient (REF) | payer MEDICARE, SELFPAY | LOC: RAD 14:21 | PROVIDERS: ATTENDING PHYSICIAN Surgery Vascular Surgery; FAMILY PHYSICIAN Family Medicine | DX: I71.43 Infrarenal abdominal aortic aneurysm, without rupture (principal) | CPT/HCPCS: 74174; Q9967 ==